=== PATIENT | male | born 1950 | race Caucasian/White ===

== ENCOUNTER 2024-06-17 08:25 | Outpatient (REF) | payer MEDICARE, SELFPAY ==
[2024-06-17 14:41] LABS: MANUAL DIFF FLAG NO
[2024-06-17 14:45] LABS: Basophils Absolute Auto 0.1 X10*3/uL (0.0-0.2); Basophils Percent Auto 0.7 % (0-2); Eosinophils Absolute Auto 0.6 X10*3/uL (0.0-0.4); Hematocrit 40.7 % (42.0-52.0); Hemoglobin 13.5 g/dl (14.0-18.0); Imm Gran Abs Auto 0.03 X10*3/uL (0.00-0.03); Imm Gran Pct Auto 0.3 % (0.0-0.4); Lymphocytes Absolute Auto 2.3 X10*3/uL (1.2-4.9); Lymphocytes Percent Auto 26.2 % (20-40); Mean Corpuscular HGB Conc 33.2 g/dl (31.0-36.0); Mean Corpuscular Hemoglobin 29.1 pg (27.0-33.0); Mean Corpuscular Volume 87.7 fL (80.0-98.0); Mean Platelet Volume 10.7 fL (9.4-12.4); Monocytes Absolute Auto 0.9 X10*3/uL (0.1-1.2); Neutrophils Absolute Auto 4.8 x10*3/uL (2.0-8.3); Neutrophils Percent Auto 55.8 % (45-73); Platelet Count 326 X10*3/uL (160-400); Red Blood Count 4.64 X10*6/uL (4.60-5.80); Red Cell Distribution Width 14.1 % (11.0-16.0); White Blood Count 8.7 X10*3/uL (4.8-10.8)
[2024-06-17 15:10] LABS: Alanine Aminotransferase 16 U/L (0-40); Albumin Level 4.1 g/dL (3.5-5.0); Alkaline Phosphatase 62 U/L (39-117); Anion Gap 12 (12-20); Aspartate Amino Transferase 20 U/L (5-37); Bilirubin Total 0.9 mg/dL (0.0-1.0); Blood Urea Nitrogen 17 mg/dL (9-16); Calcium 9.7 mg/dL (8.4-10.2); Carbon Dioxide 28 mmol/L (22-29); Chloride 104 mmol/L (96-108); Cholesterol 150 mg/dL (<200); Estimated Glomerular Filt Rate > 60; Glucose Random 82 mg/dL (60-115); HDL Cholesterol 56 mg/dL (>40); LDL Cholesterol Calculated 83 mg/dL (<100); Potassium 3.6 mmol/L (3.3-5.1); Sodium 140 mmol/L (135-145); Total Protein 6.9 g/dL (6.5-8.0); Triglycerides 55 mg/dL (<150)
[2024-06-17 15:25] LABS: Ferritin 82 ng/mL (20-250); TSH reflex Free T4 0.67 uIU/mL (0.32-4.0)
== END 2024-06-17 08:26 | disposition home or self-care (01) ==
LOC: HO.CHCLDS 08:25
PROVIDERS: Visit Provider Internal Medicine
DX: E61.1 Iron deficiency (principal); I10 Essential (primary) hypertension; I71.21 Aneurysm of the ascending aorta, without rupture; N40.0 Benign prostatic hyperplasia without lower urinary tract symptoms
CPT/HCPCS: 36415; 80053; 80061; 82728; 84443; 85025

== ENCOUNTER 2024-07-01 15:26 | Outpatient (REF) | payer MEDICARE, SELFPAY ==
--- NOTE | ~2024-07-01 | US_ITS ---
EXAMINATION: US EXTRACRANIAL CAROTID DUPLEX, BILATERAL CLINICAL INFORMATION: History of carotid stenosis COMPARISON: None available. TECHNIQUE: Real-time ultrasound and Doppler techniques (integrating B-mode 2-D vascular images, Doppler spectral analysis and color-flow Doppler imaging) were utilized to interrogate the extracranial carotid arteries, the vertebral arteries and proximal subclavian arteries bilaterally. The degree of stenosis is determined by criteria similar to NASCET. FINDINGS: Right Side: 1. There is mild atherosclerotic plaque seen in the bifurcation/proximal ICA region. 2. The common carotid artery PSV proximally is 106 cm/s and distally 118 cm/s. 3. The proximal internal carotid artery velocities are 118 cm/s systolic and 28 cm/s diastolic. 4. The proximal external carotid artery PSV is 223 cm/s. 5. The vertebral artery shows antegrade flow. 6. The subclavian artery waveforms are normal. Left Side: 1. There is mild atherosclerotic plaque seen in the bifurcation/proximal ICA region. 2. The common carotid artery PSV proximally is 102 cm/s and distally 146 cm/s. 3. The proximal internal carotid artery velocities are 107 cm/s systolic and 23 cm/s diastolic. 4. The proximal external carotid artery PSV is 247 cm/s. 5. The vertebral artery shows antegrade flow. 6. The subclavian artery waveforms are normal. Incidental note of a 2.3 x 2.0 x 2.1 cm right thyroid nodule. US/US carotid duplex BI IMPRESSION: 1. RIGHT: Minimal, non-hemodynamically significant stenosis of the proximal right internal carotid artery corresponding to a 0-49% stenosis by velocity criteria. 2. LEFT: Minimal, non-hemodynamically significant stenosis of the proximal left internal carotid artery corresponding to a 0-49% stenosis by velocity criteria. 3. Elevated velocities in the bilateral external carotid arteries and subclavian artery suggesting hemodynamically significant stenosis. 4. 2.3 x 2.0 x 2.1 cm right thyroid nodule. Recommend dedicated thyroid ultrasound for further evaluation. Electronically signed by: Loulou Galloway MD 07/04/2024 12:11 PM EDT RP
== END 2024-07-01 15:27 | disposition home or self-care (01) ==
LOC: HO.HMGCX 15:26
PROVIDERS: PCP Internal Medicine; Visit Provider Internal Medicine
DX: I77.9 Disorder of arteries and arterioles, unspecified (principal); Z86.79 Personal history of other diseases of the circulatory system; I65.23 Occlusion and stenosis of bilateral carotid arteries
CPT/HCPCS: 93880

== ENCOUNTER 2024-07-15 15:55 | Outpatient (REF) | payer MEDICARE, SELFPAY ==
--- NOTE | ~2024-07-15 | US_ITS ---
EXAMINATION: US THYROID CLINICAL INFORMATION: Incidental finding of a right thyroid lobe nodule on carotid duplex. COMPARISON: Correlated to Ultrasound extracranial carotid duplex, bilateral 07/01/2024. TECHNIQUE: Linear transducer grayscale and color Doppler examination with attention to the region of the thyroid. FINDINGS: SIZE: Measurements of the thyroid lobes and nodules are given in sagittal, anteroposterior and transverse dimensions respectively. Right Thyroid Lobe: 5.1 x 2.8 x 2.2 cm, volume 16.5 mL. Parenchyma: The gland echotexture is homogeneous. Thyroid vascularity is increased. Left Thyroid Lobe: 4.2 x 1.5 x 1.1 cm, volume 3.6 mL. Parenchyma: The gland echotexture is homogeneous. Thyroid vascularity is normal. Isthmus: 0.4 cm in maximum AP dimension. Estimated total number of nodules greater than or equal to 1 cm: 1. [facility] nodules are described as follows: 1. Location: Right mid. Size: 2.4 x 1.9 x 2.3 cm, volume 5.4 mL. Nodule characteristics: Composition: Solid/almost completely solid (2). Echogenicity: Isoechoic (1). Shape: Not taller than wide (0). Margins: Smooth (0). Echogenic Foci: None (0). ACR TI-RADS total points: 3 ACR TI-RADS category: 3 NODES: No lymphadenopathy is seen in the tissue surrounding the thyroid gland. US/US thyroid IMPRESSION: TI-RADS 3 ACR TI-RADS RECOMMENDATION REFERENCE: Ultrasound-guided fine-needle aspiration, followup ultrasound, no further follow up. * TR1 (0 point) and TR2 (2 points): No FNA or follow up. * TR3 (3 points): FNA if more than or equal to 2.5 cm in maximum dimension, followup ultrasound in 1, 3 and 5 years if 1.5 to 2.4 cm in maximum dimension. * TR4 (4-6 points): FNA if more than or equal to 1.5 cm in maximum dimension, followup ultrasound in 1, 2, 3 and 5 years if 1 to 1.4 cm in maximum dimension. * TR5 (more than or equal to 7 points): FNA if more than or equal to 1 cm in maximum dimension, followup ultrasound every year for 5 years if 0.5 to 0.9 cm in maximum dimension. * TR3, TR4 or TR5 nodules that are below the size threshold for followup receive no follow up. Electronically signed by: Duy Randle MD 09/05/2024 09:29 AM [employer]DER
== END 2024-07-15 15:56 | disposition home or self-care (01) ==
LOC: HO.US 15:55
PROVIDERS: PCP Internal Medicine; Visit Provider Internal Medicine
DX: E04.1 Nontoxic single thyroid nodule (principal)
CPT/HCPCS: 76536

== ENCOUNTER → 2024-07-15 15:57 | Outpatient (BNV) | payer MEDICARE, SELFPAY | PROVIDERS: PCP Internal Medicine; Visit Provider Radiology Diagnostic Radiology | DX: E04.1 Nontoxic single thyroid nodule (principal) | CPT/HCPCS: 76536 ==

== ENCOUNTER 2024-09-30 08:44 | Outpatient (AMB) | payer MEDICARE, SELFPAY ==
--- NOTE | 2024-09-30 08:46 | MHC.OFFVIS ---
Vital Signs 09/30/24 08:47 Height 5 ft 9 in Weight 167 lb 12.348 oz BMI 24.8 BP 120/68 Blood Pressure Location Lt brachial Position Sitting Pulse 49 L Pulse Source Pulse Oximeter Intake Visit Reasons: R Thyroid nodule Intake Note: New patient present today for R Thyroid nodule office visit. Paradi Operator Required: No Accompanied by: Self / Same As Patient Allergies No Known Allergies Allergy (Verified 09/30/24 08:49) Medication List - Last Reconciled 09/30/24 by Selin Baugh MD amlodipine 10 mg PO DAILY aspirin (Adult Low Dose Aspirin) 81 mg PO DAILY hydrochlorothiazide 12.5 mg PO DAILY HPI Comments Details: 74-year-old male here today for initial evaluation of right-sided thyroid nodule. Diagnosed with right sided thyroid nodule 3 to 4 years ago so sometime around on palpation Was previously seeing endocrine at [facility] , has had 2 biopsies around 3 years ago which per patient were both non diagnostic. Ultrasound from 07/15/2024, I reviewed the images myself which showed a solitary right mid lobe 2.4 cm nodule, solid, isoechoic, well-circumscribed, no punctate echogenic foci, not taller than wide. Consistent with TI-RADS 3. Based on YEISON guidelines this is a low suspicion nodule with a 5-10% chance of malignancy, however given that it is greater than 1.5 cm in size, per YEISON guidelines meets criteria for FNA biopsy. Patient currently denies heat or cold intolerance, diarrhea or constipation, hair loss, palpitation, anxiety, weight changes, mood changes, low energy, changes in appearance of eyes or vision changes, tremors, increased diaphoresis or dry skin. ? Patient denies any difficulty swallowing, pain on swallowing or voice changes or difficulty breathing. Patient denies any history of childhood neck radiation. Denies having ever used lithium, amiodarone or biotin supplements. Patient denies any family history of thyroid cancer. Sister with thyroidectomy but not cancer. Quit smoking 04/2020. Smoked for 60 years . Review of systems Constitutional: no fevers, chills or weight loss HEENT: no changes in vision Cardiac: No chest pain, discomfort or palpitations. Pulmonary: No SOB GI:No abdominal pain, no nausea or vomiting, no anorexia, no blood in stool : no burning micturition, dysuria or increase in urinary frequency Neurologic: No dizziness, no weakness in extremities MSK: no back pain or joint stiffness Physical exam General: sitting comfortably in no acute distress HEENT: normocephalic/atraumatic, Neck: supple, [place] 2 cm thyroid nodule on the right , no dorsocervical or supraclavicular fat pads Cardiac: normal heart sounds Pulm: normal breath sounds B/L, no added breath sounds Abd: not distended, no tenderness Extremities: no edema, no signs of myxedema Laboratory Tests 06/17/24 08:27 TSH 0.67 US THYROID 07/15/24 CLINICAL INFORMATION: Incidental finding of a right thyroid lobe nodule on carotid duplex. COMPARISON: Correlated to Ultrasound extracranial carotid duplex, bilateral 07/01/2024. TECHNIQUE: Linear transducer grayscale and color Doppler examination with attention to the region of the thyroid. FINDINGS: SIZE: Measurements of the thyroid lobes and nodules are given in sagittal, anteroposterior and transverse dimensions respectively. Right Thyroid Lobe: 5.1 x 2.8 x 2.2 cm, volume 16.5 mL. Parenchyma: The gland echotexture is homogeneous. Thyroid vascularity is increased. Left Thyroid Lobe: 4.2 x 1.5 x 1.1 cm, volume 3.6 mL. Parenchyma: The gland echotexture is homogeneous. Thyroid vascularity is normal. Isthmus: 0.4 cm in maximum AP dimension. Estimated total number of nodules greater than or equal to 1 cm: 1. Acid Blower nodules are described as follows: 1. Location: Right mid. Size: 2.4 x 1.9 x 2.3 cm, volume 5.4 mL. Nodule characteristics: Composition: Solid/almost completely solid (2). Echogenicity: Isoechoic (1). Shape: Not taller than wide (0). Margins: Smooth (0). Echogenic Foci: None (0). ACR TI-RADS total points: 3 ACR TI-RADS category: 3 NODES: No lymphadenopathy is seen in the tissue surrounding the thyroid gland. US/US thyroid IMPRESSION: TI-RADS 3 [facility] Medical History (Updated 09/30/24 @ 08:55 by Selin Baugh MD) Solitary nodule of right lobe of thyroid Surgical History (Updated 09/30/24 @ 08:50 by KATRINA Reyes) History of cataract surgery Family History Mother No problems noted. Father No problems noted. Social History Alcohol intake: former Patient Tobacco Use Status: Former Tobacco user Assessment & Plan Assessment & Plan (1) Solitary nodule of right lobe of thyroid: Code(s): E04.1 - Nontoxic single thyroid nodule Category: Medical Plan: 74-year-old male with no family history of thyroid cancer, with no personal history of head or neck radiation coming in today for initial evaluation of solitary right-sided thyroid nodule. Diagnosed sometime around 10/2021, he says he has had 2 biopsies before 3 years ago, which were both nondiagnostic and he was advised to have surgery, however he chose to monitor with repeat ultrasounds. Ultrasound from 07/15/2024, I reviewed the images myself which showed a solitary right mid lobe 2.4 cm nodule, solid, isoechoic, well-circumscribed, no punctate echogenic foci, not taller than wide. Consistent with TI-RADS 3. Based on YEISON guidelines this is a low suspicion nodule with a 5-10% chance of malignancy, however given that it is greater than 1.5 cm in size, per YEISON guidelines meets criteria for FNA biopsy. I explained that it is common to have thyroid nodules. About 95% of the time these nodules are benign. However if the nodule is > 1 cm in size or suspicious on ultrasound then a fine need aspiration biopsy is recommended. We discussed that a FNAB involves 4-5 passes with a small gauge needle and material obtained is sent off for cytology.If the cytopathology is benign then the nodule will be followed annually with repeat ultrasounds. However if it is suspicious or malignant, we will need to discuss further management. Indeterminate cytology can be further investigated with repeat FNA, genetic testing or empiric lobectomy. Malignant cytology is managed with either lobectomy or total thyroidectomy. We discussed briefly that thyroid cancer is, in most patients, an indolent disease that does not affect mortality. We will arrange for FNA of the right mid lobe 2.4 cm thyroid nodule at next available opening and patient will follow up with me in clinic thereafter for results and further decision making. If it again comes back as nondiagnostic, I explained to the patient that there is a 5-10% chance of malignancy, hence smile we would recommend undergoing right lobectomy, other option is to monitor with surveillance at rest sounds, with a known risk of 5-10% chance of malignancy that could spread potentially in cause . Patient said he would be leaning towards monitoring but for we agreed to do a biopsy. We will also obtain results of his nondiagnostic biopsies from the past from [facility] for records. Plan: -scheduled for FNA of the right mid lobe 2.4 cm thyroid nodule -follow up in 2 weeks after biopsy to discuss results -obtain records from [facility] Plan I spent 45 minutes in reviewing the record, seeing the patient and documenting in the medical record. Orders: Orders US biopsy thyroid Today E04.1 - Nontoxic single thyroid nodule Coding Level of Care Code New Pt Level 4 (59711) Diagnoses Solitary nodule of right lobe of thyroid E04.1 Time Spent (min) 45
[2024-09-30 08:47] VITALS: BP 120/68; PULSE 49; BMI 24.8
== END 2024-09-30 09:31 | disposition home or self-care (01) ==
PROVIDERS: PCP Internal Medicine; Visit Provider Student in an Organized Health Care Education/Training Program
DX: E04.1 Nontoxic single thyroid nodule (principal)
CPT/HCPCS: 99204

== ENCOUNTER → 2024-09-30 08:44 | Outpatient (BNVA) | payer MEDICARE, SELFPAY | PROVIDERS: PCP Internal Medicine; Visit Provider Student in an Organized Health Care Education/Training Program | DX: I65.23 Occlusion and stenosis of bilateral carotid arteries (principal); E04.1 Nontoxic single thyroid nodule | CPT/HCPCS: 99202 ==

== ENCOUNTER 2024-09-30 09:37 | Outpatient (AMB) | payer MEDICARE, SELFPAY ==
--- NOTE | 2024-09-30 10:15 | A.OFFVIS_ITS ---
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 He had actually been seen by his primary care team who ordered carotid ultrasound. He had been seen by vascular surgery at [facility] but subsequently transferred care due to insurance changes. He reports no significant issues. He denies any lateralizing signs or symptoms, speech disturbances, visual field deficits. He does report that he had a sister that had a stroke in the past. He quit smoking in 2019 and prior to that he was smoking about a pack a day for nearly 60 years. He is being maintained on an aspirin and statin. [facility] Medical History (Updated 09/30/24 @ 14:07 by Anirudh Peterson MD) Solitary nodule of right lobe of thyroid Surgical History (Updated 09/30/24 @ 08:50 by KATRINA Reyes) History of cataract surgery Family History (Updated 09/30/24 @ 08:51 by KATRINA Reyes) Mother No problems noted. Father No problems noted. Social History (Updated 09/30/24 @ 08:52 by KATRINA Reyes) Alcohol intake: former Patient Tobacco Use Status: Former Tobacco user Review of Systems Const All systems reviewed & are unremarkable except as noted in HPI and below Denies chills, Denies daytime sleepiness, Denies fatigue, Denies fever(s), Denies poor appetite, Denies snoring, Denies stops breathing during sleep, Denies weakness, Denies weight gain and Denies weight loss Eyes Denies loss of vision ENT Reports Normal hearing present, Denies dizziness and Denies hearing loss Card Denies chest pain, Denies irregular heart rhythm, Denies claudication, Denies leg edema, Denies lightheadedness, Denies palpitations, Denies dyspnea on exertion and Denies orthopnea Resp Denies cough, Denies excessive phlegm production, Denies dyspnea on exertion, Denies snoring and Denies wheezing GI Denies abdominal pain, Denies hematochezia, Denies change in bowel habits, Denies nausea and Denies vomiting Denies dysuria and Denies urinary frequency Musc Denies arthralgias, Denies muscle weakness, Denies numbness and Denies other Skin/Breast Denies nail changes and Denies rash Neuro Reports Normal hearing present, Denies Abnormal speech present, Denies dizziness, Denies loss of vision, Denies memory loss, Denies numbness and Denies weakness Psych Denies depression and Denies memory loss Endo Denies fatigue and Denies palpitations Aj/Lymph Denies easy bruising Aller/Immun Denies wheezing Physical Exam Vital Signs: Last Vital Signs BP 130/52 L 09/30/24 10:18 Const General: cooperative, healthy appearing and comfortable Orientation/consciousness: oriented to person, oriented to place and oriented to time HEENT Head: Yes normal to inspection Neck Neck: Yes normal visual inspection Carotids: no bruits Chest Chest palpation & inspection: normal inspection of the chest Resp Effort & Inspection: normal respiratory effort and able to speak in complete sentences Auscultation: clear to auscultation bilaterally, no crackles, no rales, no rhonchi and no wheezes Cardio Rate: regular rate Rhythm: regular rhythm Heart sounds: S1 normal heart sound present and S2 normal heart sound present Bruits: no carotid bruits Peripheral pulses: Peripheral pulses 2+ throughout GI Inspection: Yes normal to inspection Skin Wounds: no wounds Hair: normal Neuro General: oriented to person, oriented to place and oriented to time Cranial nerves: Yes CN's II-XII intact bilaterally and Yes Normal hearing present Cognition (Neuro): normal cognition Speech: No Abnormal speech present Motor exam (neuro): 5/5 motor strength present throughout Extrem Other: venous exam: No significant superficial varicosities or spider t elangiectasias, minimal edema General: No clubbing, No cyanosis and No edema Psych Appearance: grossly normal Mental Status: mental status grossly normal Speech and movement: Normal speech and movement present Results Reviewed Results Reviewed: Carotid ultrasound dated 07/04/2024 demonstrates bilateral 0-49% stenosis. Written report and images were reviewed. Assessment & Plan Assessment & Plan (1) Bilateral carotid artery stenosis: Code(s): I65.23 - Occlusion and stenosis of bilateral carotid arteries Category: Medical Plan: In short patient has asymptomatic carotid disease. We have reviewed signs and symptoms of a stroke. We also discussed risk factor modification inclusive a healthy diet low in cholesterol. The patient will follow up with us with surveillance ultrasound of the carotids 1 year. Should there be any changes or signs or symptoms of a stroke we will be happy to see them back sooner. Thank you for allowing us to participate in this patient's care. If there are any que stions or concerns please do not hesitate to contact us. Orders: Orders US carotid duplex BI 1 Year I65.23 - Occlusion and stenosis of bilateral carotid arteries Coding Level of Care Code New Pt Level 4 (15300) Complex EM visit Add On G2211 Diagnoses Bilateral carotid artery stenosis I65.23
[2024-09-30 10:16] VITALS: BP 136/50
[2024-09-30 10:18] VITALS: BP 130/52
== END 2024-09-30 10:47 | disposition home or self-care (01) ==
LOC: HO.HVS 09:37
PROVIDERS: PCP Internal Medicine; Visit Provider Surgery Vascular Surgery
DX: I65.23 Occlusion and stenosis of bilateral carotid arteries (principal)
CPT/HCPCS: 99204; G2211

== ENCOUNTER 2024-10-01 07:32 | Outpatient (REF) | payer MEDICARE, SELFPAY ==
--- NOTE | 2024-10-01 08:31 | PM.PROC ---
Brief Operative Note Date of procedure: 10/01/24 Pre-op diagnosis: right mid 2.4 cm thyroid nodule FNA biopsy Post-op diagnosis: same Procedure: THYROID FINE NEEDLE ASPIRATION PROCEDURE NOTE ? PROCEDURE PERFORMED: Ultrasound-guided FNA of thyroid nodule ? OPERATORS: Dr. Selin Baugh ? INDICATION: right mid 2.4 cm thyroid nodule; FNA performed to assess for malignancy ? DESCRIPTION OF PROCEDURE: The indications for FNA (to assess for malignancy) were reviewed with the patient in detail. Potential complications (e.g., bleeding, infection, damage to local structures, absence of clear diagnosis after FNA) were reviewed. Alternatives to FNA including conservative observation or surgery were described. The patient understood and agreed to proceed. This was documented by the signing of the written informed consent form. A time-out was performed to confirm the patient's identity and the site of planned FNA. The nodule of interest was identified using ultrasound (14 MHz linear array probe). The site of FNA was then draped in the usual fashion and carefully cleaned and prepared using alcohol swabs. The skin at the previously-identified site of needle insertion was iced and sprayed with numbing spray. Under ultrasound guidance, __ passes were performed using a 1.5-inch, 25-gauge needle, and sample was obtained via capillary action. The needle tip was clearly visualized to be within the nodule at the time of sampling for 4__ of4 __ passes The patient tolerated the procedure well. There were no immediate complications. A small adhesive bandage was applied, and the patient was advised to take acetaminophen (rather than NSAIDs) for any discomfort and to report any signs of inflammation/infection or marked swelling. IMPRESSION: Technically successful ultrasound-guided fine needle aspiration of right mid 2.4 cm thyroid nodule. PLAN: The patient was advised that I will provide follow-up regarding the cytology result and any subsequent plans. Selin Baugh MD Endocrinology Attending Condition: stable Disposition: same day
== END 2024-10-01 07:33 | disposition home or self-care (01) ==
LOC: HO.US 07:32
PROVIDERS: PCP Internal Medicine; Visit Provider Student in an Organized Health Care Education/Training Program
DX: E04.1 Nontoxic single thyroid nodule (principal)
CPT/HCPCS: 10005; 88173

== ENCOUNTER → 2024-10-01 07:32 | Outpatient (BNV) | payer MEDICARE, SELFPAY | PROVIDERS: PCP Internal Medicine; Visit Provider Student in an Organized Health Care Education/Training Program | DX: E04.1 Nontoxic single thyroid nodule (principal) | CPT/HCPCS: 10005 ==

== ENCOUNTER 2024-10-16 09:18 | Outpatient (AMB) | payer MEDICARE, SELFPAY ==
[2024-10-16 09:20] VITALS: BP 142/62; PULSE 53; BMI 24.9
--- NOTE | 2024-10-16 09:20 | A.OFFVIS_ITS ---
Vital Signs 3 10/16/24 09:20 Height 5 ft 9 in Weight 168 lb 13.985 oz BMI 24.9 BP 142/62 H Blood Pressure Location Lt brachial Position Sitting Pulse 53 Pulse Source Pulse Oximeter Intake Visit Reasons: Biopsy f/u Intake Note: Patient present today for biopsy follow up visit. Adult Family Home Program Manager Required: No Accompanied by: Self / Same As Patient Allergies No Known Allergies Allergy (Verified 10/16/24 09:25) HPI Comments Details: 74-year-old male here today for followup of right-sided thyroid nodule. HPI from prior visit Diagnosed with right sided thyroid nodule 3 to 4 years ago so sometime around on palpation Was previously seeing endocrine at [facility] , has had 2 biopsies around 3 years ago which per patient were both non diagnostic. Ultrasound from 07/15/2024, I reviewed the images myself which showed a solitary right mid lobe 2.4 cm nodule, solid, isoechoic, well-circumscribed, no punctate echogenic foci, not taller than wide. Consistent with TI-RADS 3. Based on YEISON guidelines this is a low suspicion nodule with a 5-10% chance of malignancy, however given that it is greater than 1.5 cm in size, per YEISON guidelines meets criteria for FNA biopsy. Interval history On 10/01/2024: Underwent FNA biopsy with me of the right mid 2.4 cm nodule which came back as nondiagnostic [place] category 1. Patient currently denies heat or cold intolerance, diarrhea or constipation, hair loss, palpitation, anxiety, weight changes, mood changes, low energy, changes in appearance of eyes or vision changes, tremors, increased diaphoresis or dry skin. ? Patient denies any difficulty swallowing, pain on swallowing or voice changes or difficulty breathing. Patient denies any history of childhood neck radiation. Denies having ever used lithium, amiodarone or biotin supplements. Patient denies any family history of thyroid cancer. Sister with thyroidectomy but not cancer. Quit smoking 04/2020. Smoked for 60 years . Review of systems Constitutional: no fevers, chills or weight loss HEENT: no changes in vision Cardiac: No chest pain, discomfort or palpitations. Pulmonary: No SOB GI:No abdominal pain, no nausea or vomiting, no anorexia, no blood in stool : no burning micturition, dysuria or increase in urinary frequency Neurologic: No dizziness, no weakness in extremities MSK: no back pain or joint stiffness Physical exam General: sitting comfortably in no acute distress HEENT: normocephalic/atraumatic, Neck: supple, [place] 2 cm thyroid nodule on the right , no dorsocervical or supraclavicular fat pads Cardiac: normal heart sounds Pulm: normal breath sounds B/L, no added breath sounds Abd: not distended, no tenderness Extremities: no edema, no signs of myxedema Laboratory Tests 06/17/24 08:27 TSH 0.67 US THYROID 07/15/24 CLINICAL INFORMATION: Incidental finding of a right thyroid lobe nodule on carotid duplex. COMPARISON: Correlated to Ultrasound extracranial carotid duplex, bilateral 07/01/2024. TECHNIQUE: Linear transducer grayscale and color Doppler examination with attention to the region of the thyroid. FINDINGS: SIZE: Measurements of the thyroid lobes and nodules are given in sagittal, anteroposterior and transverse dimensions respectively. Right Thyroid Lobe: 5.1 x 2.8 x 2.2 cm, volume 16.5 mL. Parenchyma: The gland echotexture is homogeneous. Thyroid vascularity is increased. Left Thyroid Lobe: 4.2 x 1.5 x 1.1 cm, volume 3.6 mL. Parenchyma: The gland echotexture is homogeneous. Thyroid vascularity is normal. Isthmus: 0.4 cm in maximum AP dimension. Estimated total number of nodules greater than or equal to 1 cm: 1. [employer] nodules are described as follows: 1. Location: Right mid. Size: 2.4 x 1.9 x 2.3 cm, volume 5.4 mL. Nodule characteristics: Composition: Solid/almost completely solid (2). Echogenicity: Isoechoic (1). Shape: Not taller than wide (0). Margins: Smooth (0). Echogenic Foci: None (0). ACR TI-RADS total points: 3 ACR TI-RADS category: 3 NODES: No lymphadenopathy is seen in the tissue surrounding the thyroid gland. US/US thyroid IMPRESSION: TI-RADS 3 [facility] Medical History (Updated 09/30/24 @ 14:07 by Anirudh Peterson MD) Solitary nodule of right lobe of thyroid Surgical History (Updated 09/30/24 @ 08:50 by KATRINA Reyes) History of cataract surgery Family History (Updated 09/30/24 @ 08:51 by KATRINA Reyes) Mother No problems noted. Father No problems noted. Social History (Updated 09/30/24 @ 08:52 by KATRINA Reyes) Alcohol intake: former Patient Tobacco Use Status: Former Tobacco user Assessment & Plan Assessment & Plan (1) Solitary nodule of right lobe of thyroid: Code(s): E04.1 - Nontoxic single thyroid nodule Category: Medical Plan: 74-year-old male with no family history of thyroid cancer, with no personal history of head or neck radiation coming in today for follow up of solitary right-sided thyroid nodule. Diagnosed sometime around 10/2021, he says he has had 2 biopsies before 3 years ago, which were both nondiagnostic and he was advised to have surgery, however he chose to monitor with repeat ultrasounds. Ultrasound from 07/15/2024, I reviewed the images myself which showed a solitary right mid lobe 2.4 cm nodule, solid, isoechoic, well-circumscribed, no punctate echogenic foci, not taller than wide. Consistent with TI-RADS 3. Based on YEISON guidelines this is a low suspicion nodule with a 5-10% chance of malignancy, however given that it is greater than 1.5 cm in size, per YEISON guidelines meets criteria for FNA biopsy. On 10/01/2024: Underwent FNA biopsy with me of the right mid 2.4 cm nodule which came back as nondiagnostic [place] category 1. At this point patient has had 3 nondiagnostic biopsies. I explained to the patient that there is a 5-10% chance of malignancy, hence one option is undergoing right lobectomy, other option is to monitor with surveillance ultrasounds, with a known risk of 5-10% chance of malignancy that could spread potentially in cause . Patient said he would be okay with monitoring knowing the risk. I counseled him regarding compressive symptoms in that if those occur to contact us sooner. At this point we will plan to repeat an ultrasound in 1 year. Plan: -ordered ultrasound of the thyroid to be done in August 2025 along with blood work with TSH, free T4 -follow up in September 2025 Plan See above Orders: Orders 2 Thyroid Stimulating Hormone 1 Year E04.1 - Nontoxic single thyroid nodule Free T4 (Free Thyroxine) 1 Year E04.1 - Nontoxic single thyroid nodule US thyroid 08/24/25 E04.1 - Nontoxic single thyroid nodule Patient Instructions: Do thyroid ultrasound and blood work in August 2025 See me back in September 2025 Someone will call you to schedule the ultrasound The blood work orders is already sitting at the lab Coding Level of Care Code Est Pt Level 3 (81676) Diagnoses Solitary nodule of right lobe of thyroid E04.1
== END 2024-10-16 09:35 | disposition home or self-care (01) ==
PROVIDERS: PCP Internal Medicine; Visit Provider Student in an Organized Health Care Education/Training Program
DX: E04.1 Nontoxic single thyroid nodule (principal)
CPT/HCPCS: 99213

== ENCOUNTER → 2024-10-16 09:18 | Outpatient (BNVA) | payer MEDICARE, SELFPAY | PROVIDERS: PCP Internal Medicine; Visit Provider Student in an Organized Health Care Education/Training Program | DX: E04.1 Nontoxic single thyroid nodule (principal) | CPT/HCPCS: 99212 ==

== ENCOUNTER 2025-07-08 08:08 | Outpatient (REF) | payer MEDICARE, SELFPAY ==
--- OUTSIDE RECORDS SUMMARY | 2025-07-08 08:57 | XMS_ITS | Encounter Summary ---
Author Organization [employer] Address [address] [place] [address] Care Team Providers Care Tack Welder Name Role Phone Dio Jauregui MD Primary Care Provider [phone] Encounter Details Date Type Department Care Team ([facility] st Contact Info) Description 02/20/2025 Orders Only [facility] [address] [place], [place] [id number] ProviderGm MD Social History Tobacco Use Types Packs/Day Years Used Date Smoking Tobacco: Former Cigarettes 1 61.1 S tarted: 06/16/1964 Comments:Quit smoking on 04/22 020. Smoked average 1 pd x 60 years. Housing Stability Answer Date Recorded What is your housing situation today? I have cornelius gomez 06/09/[address] you li ve. Do you have problems with any of the following? None of the above 06/09/2024 Food Insecurity Answer Date Recorded Within the past 12 months, y ou worried that your food would run out before you got money to buy more: Never True 06/09/2024 Within the past 12 months,th e food you bought just didn't last and you didn't have enough money to get more: Never True Transportation Answer Date Recorded In the past 12 months, has l ack of transportation kept you from medical appts, meetings, work or from getting things needed for daily living? No 06/09/2024 Utilities Answer Date Recorded In the past 12 months, has t he electric, gas, oil or water company threatened to shut off services in your home? No 06/09/2024 Internet Access Answer Date Recorded Internet Access Q1 Yes 06/20/2024 Internet Access Q2 Not on file 06/20/2024 Sex and Gender Information Value Date Recorded Sex Assigned at Male 08/21/2022 10:21 AM EDT Legal Sex Male 10:21 AM EDT Gender Identity Male 08/21/2022 10:21 AM EDT Sexual Orientation Straight 08/21/2022 10 :21 AM EDT documented as of this encounter Plan of Treatment Upcoming Encounters Date Type Department Care Team (Late st Contact Info) Description 07/13/2025 9:00 AM EDT Office Visit [facility] [address] [place] [address] Dio Jauregui MD [address] [place] [address] documented as of this encounter Procedures Procedure Name Priority Date/Time Associated Diagnosis Comments ECG 12-LEAD Routine 02/20/2025 3:11 PM EDT documented in this encounter Results * ECG 12 lead (02/20/2025 3:11 PM EDT) us Historical Provider ECG ORDERABLES Final Res ult documented in this encounter Visit Diagnoses Not on filedocumented in this encounter Care Teams Tack Welder Relationship Specialty Start Date End Date Dio Jauregui MD [address] [place] [address] PCP - General Internal Medicine 06/16/24 documented as of this encounter
--- OUTSIDE RECORDS SUMMARY | 2025-07-08 08:58 | XMS_ITS | Clinical Summary ---
Author Organization [address] [place] [address] [place] [phone] Phone Care Team Providers Care Search Marketing Coordinator Name Role Phone Dio Jauregui MD Primary Care Provider [phone] [phone] Allergies No known active allergies Medications hydroCHLOROthiaz bhaskar 12.5 mg tablet Take 1 Tablet by mouth daily. 03/21/2024 Active atorvastatin (LIPITOR) 20 mg tablet Take 1 Tablet by mouth daily. 03/21/2024 Active amLODIPine (NORVASC) 10 mg tablet Take 1 Tablet by mouth daily. 03/21/2024 Active aspirin 81 mg EC tablet Take 1 Tablet by mouth daily. 03/21/2024 Active Active Problems Problem Noted Date Diagnosed Date Bilateral carotid bruits 08/10/2021 Overview (09/17/2024): -Carotid and possible left subclavian disease -[place] bruits on exam so obtained a carotid ultrasound on 09/12/2021 showing 50 to 69% stenosis of the right internal carotid (closer to 50% though based on velocities), and less than 50% stenosis in the left internal carotid with elevated velocities in the left subclavian artery suggesting possible stenosis, normal velocities in the right subclavian, antegrade flow in both vertebrals. - Had a repeat carotid ultrasound more recently on 05/22/2023 which showed no hemodynamically significant stenoses of the bilateral internal carotid arteries with elevated velocities in the bilateral external carotid arteries, patent, antegrade flow in both vertebrals -Followed by vascular surgery Coronary artery calcification seen on CAT scan 0 06/15/2021 Overview (09/17/2024): -Had a screening low-dose lung cancer CT of the chest on 06/05/2021 which showed three-vessel coronary artery calcification most confluent left anterior descending coronary artery, enlargement of the ascending thoracic aortic aneurysm at 4.1 cm, no evidence of lung cancer, other noncardiac findings as well -At his initial visit with me, he described significant symptoms of shortness of breath with exertion-typically with stair climbing (though usually multiple flights) that has been progressing over the past year -We set him up for an exercise nuclear stress test which was performed on 08/29/2021-he exercised for almost 6 minutes but only to 78% of max predicted heart rate but to symptom limitation; he had the symptoms he was experiencing at home which were shortness of breath with wheezing; nuclear imaging showed apical thinning-a benign variant but otherwise normal perfusion, normal systolic function and regional wall motion, normal TID ratio, and preserved ejection fraction of 60%; he did have a short run of an ectopic atrial rhythm in recovery that eventually converted to sinus rhythm by the end of the study Last Assessment & Plan: Continue medical management with atorvastatin 20 mg at bedtime and baby aspirin Ectatic aorta ([facility] [place] V24) 06/15/2021 Overview (02/20/2025): -See CT under cor calc section from 06/05/2021-Dr. Shaver independently reviewed these images and got an aortic root measurement of 3.8 cm in the septal lateral dimension (aortic root was not well-visualized in the anteroposterior dimension); ascending aorta was measured at 3.95 cm (septal lateral) by 3.61 cm (anteroposterior) - Independent review of May 2022 CT scan showed (SL x AP): Aortic root: 3.8cm x not well visualized Ascending aorta: 4cm x 3.9 cm (but this latter measurement was degraded slightly by motion artifact and margins were not well delineated) - Independent review of May 2023 CT scan using above format: Aortic root: 3.8 x not well-visualized Ascending aorta: 3.9 x 3.6 cm -Independent review of June 2024 CT scan and above format: Aortic root: 3.8 x not well visualized Ascending aorta: 3.9 x 3.7cm - Most recent echocardiogram in our office on 07/09/2023 showed normal biventricular size and systolic function, normal left ventricular regional wall motion with ejection fraction of 55 to 60%, normal left ventricular diastolic function, no hemodynamically significant valve disease, normal aortic root size at 3.4 cm and upper normal ascending aortic size at 3.6 cm Last Assessment & Plan: Reviewed that most of his scans over the years-CAT scans and echocardiograms- have indicated that his aorta is likely upper normal in size and at the very worst, only mildly ectatic. Reassurance was provided. Ultimately, I am not sure it is necessary to continue surveillance imaging but for his own peace of mind, he will be getting yearly CT scans as a part of the lung cancer screening program for the next couple of years. Thereafter, would probably only do surveillance echoes every 4 to 5 years assuming that the next 2 CT scans are stable. Advised against excessive heavy lifting but not necessarily for the aorta but mainly for musculoskeletal reasons. He does not do this anyway. No activity restrictions as far as cardiovascular exercise. Essential hypertension 06/15/2021 Overview (09/17/2024): Last Assessment & Plan: Normally well-controlled on prior office visits and at home. Today's elevation is likely whitecoat phenomenon. 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 Encounters Date Type Department Care Team Description 06/27/2025 6:58 AM EDT - 06/27/2025 11:59 PM EDT Hospital Encounter [facility] CT Scan [address] [place] [address] Encounter for screening for malignant neoplasm of respiratory organs; Nicotine dependence, cigarettes, uncomplicated Discharge Disposition: Home or Self Care 06/04/2025 Telephone Lung Screening Program - [place] [facility] [address] [facility] [address] [place] [address] Janice Ma MA from Last 3 Months Surgical History Surgery Date Site/Laterality Comments TURP / TRANSURETHRAL INCISIO N / DRAINAGE PROSTATE N/A PROCEDURE: HISTORICAL TURP Medical History Medical History Date Comments Tobacco abuse 03/01/2021 DX:Tobacco abuse Blind right eye 03/01/2021 DX:Blind right e ye; COMMENT: Since childhood Essential hypertension DX:Essent ial hypertension Hyperlipidemia DX:Hyperlipidemi a Family History Medical History Relation Name Comments Sudden Brother in his 40s ; he's a half sibling; his father (who is not related to the patient) early of an AR No Known Problems Father doesn't kn ow much about him, not involved with them until later in life Other: mva Mother Heart attack Sister early 60s Stroke Sister Relation Name Status Comments Brother Father Mother Sister Alive Social History Tobacco Use Types Packs/Day Years Used Date Smoking Tobacco: Former Cigarettes Q uit: 05/18/2021 Smokeless Tobacco: Never Alcohol Use Standard Drinks/Week Comments Never 0 (1 standard drink = 0.6 oz pur e alcohol) Sex and Gender Information Value Date Recorded Sex Assigned at Not on file Legal Sex Male 9:50 PM EST Gender Identity Not on file Sexual Orientation Not on file Obstetrics History Last Filed Vital Signs Vital Sign Reading Time Taken Comments Blood Pressure 130/60 02/20/2025 10:36 AM EDT Pulse 58 02/20/2025 10:36 AM EDT Temperature - - Respiratory Rate - - Oxygen Saturation 98% 02/20/2025 10:36 AM EDT Inhaled Oxygen Concentration - - Weight 76.2 kg (168 lb) 02/20/2025 10:36 AM EDT Height 175.3 cm (5' 9 ) 02/20/2025 10:36 AM EDT Body Mass Index 24.81 02/20/2025 10:36 AM EDT Plan of Treatment Health Maintenance Due Date Last Done Comments DTaP,Tdap,and Td Vaccines (1 - Tdap) 1969 Pneumococcal Vaccine: 50+ Years (1 of 1 - PCV) 2000 Zoster Vaccines (1 of 2) 2000 Abdominal Aortic Aneurysm (AAA) Screen 09/30/2022 Colorectal Cancer Screening: Stool Based Tests (FOBT/FIT) 09/30/2022 Falls Risk Assessment 09/30/2022 Hepatitis C Screening 09/30/2022 Medicare Annual Wellness Visit 09/30/2022 Social Influencers of Health Screening 09/30/2022 Hypertension/CHF/CAD Annual BMP Blood Test 09/20/2024 09/20/2023 Depression Screening 10/22/2024 RSV Immunization Adult Patients (1 - 1-dose 75+ series) 2025 COVID-19 Vaccine (2024- season) 2025 01/06/2023, 02/09/2021, 01/18/2021 Influenza Vaccine (#1) 2025 Lung Cancer Screening (Low Dose CT) 06/27/2026 06/27/2025, 06/24/2024, 06/22/2024, Additional history exists Cholesterol Screening (Lipid Panel) 06/17/2029 06/17/2024, 08/15/2022 HIB Vaccines Aged Out No longer eligi ble based on patient's age to complete this topic HPV Vaccines Aged Out No longer eligi ble based on patient's age to complete this topic Hepatitis A Vaccines Aged Out No long er eligible based on patient's age to complete this topic Hepatitis B Vaccines Aged Out No long er eligible based on patient's age to complete this topic IPV Vaccines Aged Out No longer eligi ble based on patient's age to complete this topic MMR Vaccines Aged Out No longer eligi ble based on patient's age to complete this topic Meningococcal ACWY Vaccine Aged Out N o longer eligible based on patient's age to complete this topic Meningococcal B Vaccine Aged Out No l onger eligible based on patient's age to complete this topic RSV Immunization Patients Under 20 months Aged Out No longer eligible based on patient's age to complete this topic Varicella Vaccines Aged Out No longer eligible based on patient's age to complete this topic Procedures Procedure Name Priority Date/Time Associated Diagnosis Comments CT LUNG SCREENING Routine 06/27/2025 7:2 0 AM EDT Encounter for screening for malignant neoplasm of respiratory organs Nicotine dependence, cigarettes, uncomplicated HM ANNUAL BMP BLOOD TEST Routine 09/20/2023 LIPID PANEL Routine 08/15/2022 from Last 3 Months or Most Recently Relevant to Health Maintenance Results * CT Lung Screening (06/27/2025 7:20 AM EDT) Anatomical Region Laterality Modality Chest Computed Tomogra phy 07/07/2025 5:54 PM EDT Impressions 07/07/2025 6:02 PM EDT No new suspicious mass or nodule. No suspicious interval change. LUNG RADS: Lung-RADS 2: BENIGN S Modifier (Significant or Potentially Significant Findings): None present No suspicious nonpulmonary findings. RECOMMENDATIONS: 12 month screening low dose CT -------- FINAL REPORT -------- Dictated By: Sandeep Palmer Dictated Date: 07/07/2025 17:54 ET Assigned Physician: Sandeep Palmer Reviewed and Electronically Signed By: Sandeep Palmer Signed Date: 07/07/2025 18:02 ET Workstation ID: [id number] Transcribed By: Self Edit Transcribed Date: 07/07/2025 17:54 ET Narrative 07/07/2025 6:02 PM EDT EXAMINATION: CT CHEST WITHOUT CONTRAST LUNG CANCER SCREENING, LOW DOSE CLINICAL INFORMATION: Lung cancer screening. Current smoker. COMPARISON: Portions of previous 06/22/24 TECHNIQUE: Multidetector CT. Examination of the chest. Examination of the chest without IV contrast. Reformatting in the coronal and sagittal planes. Device: Picmonic VCT DLP: 109 mGy-cm CTDI: 3.22 Dose optimization was performed including the use of low-dose iterative reconstruction technique with automatic exposure control based on patient size. Type of contrast: None Volume of IV contrast: None Volume of contrast discarded: 0 mL FINDINGS: LUNG: No abnormality of the trachea or mainstem bronchi. LUNG NODULES: There are no suspicious nodules or masses. There are unchanged small nodules. The largest in the left apex measures approximately 0.4 cm (3/33). OTHER PULMONARY: No significant interstitial lung abnormalities. MEDIASTINUM: There are no enlarged mediastinal or hilar lymph nodes. No suspicious abnormalities of the esophagus. Unchanged low attenuating right thyroid nodule. CARDIAC: The heart is not enlarged. No pericardial fluid or thickening There are moderate coronary calcifications. VASCULAR: There is no thoracic aortic aneurysm. The main pulmonary artery is normal caliber PLEURA: There is no pleural fluid or pneumothorax AXILLA/CHEST WALL: There are no enlarged axillary lymph nodes. No chest wall mass demonstrated. VISUALIZED UPPER ABDOMEN: No suspicious abnormality on limited assessment of the visualized upper abdomen. MUSCULOSKELETAL: No suspicious focal bony lesion demonstrated. Procedure Note Sandeep Palmer MD - 07/07/2025 EXAMINATION: CT CHEST WITHOUT CONTRAST LUNG CANCER SCREENING, LOW DOSE CLINICAL INFORMATION: Lung cancer screening. Current smoker. COMPARISON: Portions of previous 06/22/24 TECHNIQUE: Multidetector CT. Examination of the chest. Examination of the chest without IV contrast. Reformatting in the coronal and sagittal planes. Device: [employer] VCT DLP: 109 mGy-cm CTDI: 3.22 Dose optimization was performed including the use of low-dose iterativereconstruction technique with automatic exposure control based on patientsize. Type of contrast: None Volume of IV contrast: None Volume of contrast discarded: 0 mL FINDINGS: LUNG: No abnormality of the trachea or mainstem bronchi. LUNG NODULES: There are no suspicious nodules or masses. There are unchanged small nodules. The largest in the left apex measuresapproximately 0.4 cm (3/33). OTHER PULMONARY: No significant interstitial lung abnormalities. MEDIASTINUM: There are no enlarged mediastinal or hilar lymph nodes. Nosuspicious abnormalities of the esophagus. Unchanged low attenuating right thyroid nodule. CARDIAC: The heart is not enlarged. No pericardial fluid or thickening There are moderate coronary calcifications. VASCULAR: There is no thoracic aortic aneurysm. The main pulmonary arteryis normal caliber PLEURA: There is no pleural fluid or pneumothorax AXILLA/CHEST WALL: There are no enlarged axillary lymph nodes. No chestwall mass demonstrated. VISUALIZED UPPER ABDOMEN: No suspicious abnormality on limited assessmentof the visualized upper abdomen. MUSCULOSKELETAL: No suspicious focal bony lesion demonstrated. IMPRESSION: No new suspicious mass or nodule. No suspicious interval change. LUNG RADS: Lung-RADS 2: BENIGN S Modifier (Significant or Potentially Significant Findings): Nonepresent No suspicious nonpulmonary findings. RECOMMENDATIONS: 12 month screening low dose CT -------- FINAL REPORT -------- Dictated By: Sandeep Palmer Dictated Date: 07/07/2025 17:54 ET Assigned Physician: Sandeep Palmer Reviewed and Electronically Signed By: Sandeep Palmer Signed Date: 07/07/2025 18:02 ET Workstation ID: [id number] Transcribed By: Self Edit Transcribed Date: 07/07/2025 17:54 ET us Nury Singleton MD IMG CT PROCEDURES Final Result * Annual BMP Blood Test (09/20/2023) Annual BMP Blood Test Abstracted Historical Provider HEALTH MAINTENANCE Final Result * Lipid panel (08/15/2022) LDL/HDL Ratio 2 0 - 4 Triglycerides 50 0 - 150 mg/dL Cholesterol 144 0 - 200 mg/dL HDL 69 >=40 mg/dL LDL Cholesterol 65 0 - 100 mg/dL Blood Venous blood specimen / Unknown Historical Provider LAB BLOOD ORDERABLES Smiley l Result from Last 3 Months or Most Recently Relevant to Health Maintenance Insurance MEDICAID [place] [address] Care Teams Search Marketing Coordinator Relationship Specialty Start Date End Date Dio Jauregui MD [address] [place] [id number] PCP - General Internal Medicine 02/20/25
--- OUTSIDE RECORDS SUMMARY | 2025-07-08 08:58 | XMS_ITS | Encounter Summary ---
Author Organization [employer] Address [address] [place] [address] Care Team Providers Care Traveling Sales Executive Name Role Phone Dio Jauregui MD Primary Care Provider [phone] Reason for Visit * Reason Onset Date Comments New Patient appt 05/14/2024 Encounter Details Date Type Department Care Team ([facility] st Contact Info) Description 05/14/2024 Telephone [facility] [address] [place], [place] [phone] Dustin Samson MD [address] [place], [place] [phone] New Patient appt Social History Tobacco Use Types Packs/Day Years Used Date Smoking Tobacco: Never Assessed Sex and Gender Information Value Date Recorded Sex Assigned at Male 08/21/2022 10:21 AM EDT Legal Sex Male 10:21 AM EDT Gender Identity Male 08/21/2022 10:21 AM EDT Sexual Orientation Straight 08/21/2022 10 :21 AM EDT documented as of this encounter Miscellaneous Notes * Telephone Encounter - Allison Rojo - 05/16/2024 3:46 PM EDT TC placed to patient for scheduling of new patient visit. Agreed to 06-16-2024 with [facility] Medical Conditions: Thyroid, High Blood Pressure Apptmnt reminder and release form sent via mail . * Telephone Encounter - Allison Rojo - 05/14/2024 9:58 AM EDT Contact pt to schedule new pt appt pt is currently at work and stated will return call wend available. * Telephone Encounter - Kyle Junior Aldrich - 05/14/2024 9:31 AM EDT Tc from pt Spouse requesting a New Patient appt urgently. Spouse explains Medical issues of Thyroid, High Blood Pressure, needing referrals for Vascular, Cardiology, [employer], and pt is currently taking medications. [facility] Facility Pt used to be [facility] pt back in 2015 Spouse explains to please call and let know if we could booked if not to look somewhere else. documented in this encounter Plan of Treatment Upcoming Encounters Date Type Department Care Team (Late st Contact Info) Description 07/13/2025 9:00 AM EDT Office Visit [facility] [address] [place] [address] Dio Jauregui MD [address] [place] [address] documented as of this encounter Visit Diagnoses Not on filedocumented in this encounter Care Teams Traveling Sales Executive Relationship Specialty Start Date End Date Dio Jauregui MD [address] [place] [address] PCP - General Internal Medicine 06/16/24 documented as of this encounter
--- OUTSIDE RECORDS SUMMARY | 2025-07-08 08:58 | XMS_ITS | Encounter Summary ---
Author Organization [employer] Address [address] [facility] [address] [place] [address] Care Team Providers Care Digital Producer Name Role Phone Dio Jauregui MD Primary Care Provider [phone] Encounter Details Date Type Department Care Team ([facility] st Contact Info) Description 03/04/2025 Orders Only [facility] PEDS [address] [place], [place] [phone] ProviderGm MD Social History Tobacco Use Types [...] 07/13/2025 9:00 AM EDT Office Visit [facility] [address] [place] [address] Dio Jauregui MD [address] [place] [address] documented as of this encounter Procedures Procedure Name Priority Date/Time Associated Diagnosis Comments HM COLONOSCOPY Routine 07/30/2023 4:21 PM EDT documented in this encounter Results * Hm Colonoscopy (07/30/2023 4:21 PM EDT) Historical Provider HEALTH MAINTENANCE Final Result documented in this encounter Visit Diagnoses Not on filedocumented in this encounter Care Teams Digital Producer Relationship Specialty Start Date End Date Dio Jauregui MD [address] [place] [address] PCP - General Internal Medicine 06/16/24 documented as of this encounter
--- OUTSIDE RECORDS SUMMARY | 2025-07-08 08:58 | XMS_ITS | Clinical Summary ---
Author Organization [employer] Address [address] [facility] [address] [place] [address] Care Team Providers Care Dip Stand Loader Name Role Phone Dio Jauregui MD Primary Care Provider [phone]- [phone] Allergies No known active allergies Medications amLODIPine (Norvasc) 10 MG tabletIndications :Primary hypertension Take 1 tablet (10 mg) by mouth Once per day. 90 tablet 3 06/16/2024 Active atorvastatin (Lipitor) 20 MG tabletIndications :Primary hypertension Take 1 tablet (20 mg) by mouth Once per day. 90 tablet 3 06/16/2024 Active hydroCHLOROthiazi de 12.5 MG tabletIndications :Primary hypertension Take 1 tablet (12.5 mg) by mouth Once per day. 90 tablet 3 06/16/2024 Active Ferrous Sulfate (iron) 325 (65 Fe) MG tabletIndications :Iron deficiency 1 tab once a day 30 tablet 11 06/16/2024 Active Aspirin Low Dose 81 MG EC tabletIndications :Primary hypertension TAKE 1 TABLET BY MOUTH EVERY DAY 90 tablet 3 06/01/2025 Active Active Problems Problem Noted Date Diagnosed Date Right thyroid nodule 02/25/2025 Ectatic aorta 02/25/2025 Primary hypertension 06/16/2024 Encounters Date Type Department Care Team Description 06/01/2025 Refill [facility]ED[facility] [address] [place] [address] Dio Jauregui MD Primary hypertension from Last 3 Months Social History Tobacco Use Types Packs/Day Years Used Date Smoking Tobacco: Former Cigarettes 1 61.1 S tarted: 06/16/1964 Tobacco Cessation:Counseling Given: No Comments:Quit smoking on 04/2020. Smoked average 1 pd x 60 years. [...] Orientation Straight 08/21/2022 10 :21 AM EDT Last Filed Vital Signs Vital Sign Reading Time Taken Comments Blood Pressure 135/64 02/25/2025 8:58 AM EDT Pulse 58 02/25/2025 8:58 AM EDT Temperature 36.6 C (97.9 F) 02/25/2025 8:58 AM EDT Respiratory Rate 20 02/25/2025 8:58 AM EDT Oxygen Saturation 99% 02/25/2025 8:58 AM EDT Inhaled Oxygen Concentration - - Weight 74.8 kg (165 lb) 02/25/2025 8:58 AM EDT Height 175.3 cm (5' 9 ) 02/25/2025 8:58 AM EDT Body Mass Index 24.37 02/25/2025 8:58 AM EDT Plan of Treatment Upcoming Encounters Date Type Department Care Team (Late st Contact Info) Description 07/13/2025 9:00 AM EDT Office Visit [facility] [address] [place] [address] Dio Jauregui MD [address] [place] [address] Health Maintenance Due Date Last Done Comments CT Colonography 1950 Depression Screening 1950 FIT DNA/Cologuard 1950 FIT 1950 FOBT 1950 Sigmoidoscopy 1950 Alcohol/Substance Use Screening 1962 Hepatitis C Screening 1968 DTaP/Tdap/Td Vaccines (1 - Tdap) 1969 Pneumococcal Vaccine: 50+ Years (1 of 1 - PCV) 2000 Zoster Vaccines (1 of 2) 2000 RSV Patients and Patients Aged 60 years or older (1 - 1-dose 75+ series) 2025 SDOH Screening 06/09/2025 06/09/2024 COVID-19 Vaccine (4 - 2024-2 6 season) 2025 01/06/2023, 02/09/2021, 01/18/2021 Influenza Vaccine (#1) 2025 Tobacco Screening 08/06/2025 08/06/2024 Lipid Panel 06/17/2029 06/17/2024 Colonoscopy 07/30/2033 07/30/2023 Colorectal Cancer Screening 07/30/2033 HIB Vaccines Aged Out No longer eligi [...] patient's age to complete this topic Meningococcal Vaccine Aged Out No josé russell eligible based on patient's age to complete this topic RSV under 20 months Aged Out No longe r eligible based on patient's age to complete this topic Rotavirus Vaccines Aged Out No longer eligible based on patient's age to complete this topic Procedures Procedure Name Priority Date/Time Associated Diagnosis Comments LIPID PANEL, STANDARD Routine 06/17/2024 8:27 AM EDT Primary hypertension Aneurysm of ascending aorta without rupture (CMS/HCC) COLONOSCOPY Routine 07/30/2023 4:21 PM EDT from Last 3 Months or Most Recently Relevant to Health Maintenance Results * Lipid Panel, Standard (06/17/2024 8:27 AM EDT) Triglycerides 55 <150 mg/dL [facility] Comment:Desirable Triglyceri de: less than 150 mg/dLBorderline High Triglyceride 150-199 mg/dLHigh Triglyceride: 200-499 mg/dLVery High Triglyceride: greater than or equal to 5OO mg/dL Cholesterol 150 <200 mg/dL [facility] Comment:Desirable Cholestero l: less than 200 mg/dLBorderline High Cholesterol: 200-239 mg/dLHigh Cholesterol: greater than 239 mg/dL LDL Cholesterol Calculated 83 <100 mg/dL [facility] Comment:Desirable LDL: less than 100 mg/dLNear Optimal/Above Optimal LDL: 110- 129 mg/dLBorderline High LDL: 130-159 mg/dLHigh LDL: 160-189 mg/dLVery High LDL: greater than or equal to 190 mg/dL HDL Cholesterol 56 >40 mg/dL [facility] Comment:Desirable HDL: great er than 40 mg/dL Note: This HDL assay may give artificially low results in patients with liver disease. Blood Venous blood specimen / Unknown 06/17/2024 8:27 AM EDT 06/17/2024 2:38 PM EDT us Dio Jauregui MD LAB BLOOD ORDERABLES Final Result [facility] [address] [place] [phone] * Colonoscopy (07/30/2023 4:21 PM EDT) us Historical Provider HEALTH MAINTENANCE Final Result from Last 3 Months or Most Recently Relevant to Health [place] [address] [facility] MEDICARE [place] [address] [place] [address] Care Teams Dip Stand Loader Relationship Specialty Start Date End Date Dio Jauregui MD [address] [place] [address] ABRAHAM Gilbert [address] PCP - General Internal Medicine 06/16/24
[2025-07-08 14:18] LABS: MANUAL DIFF FLAG NO
[2025-07-08 14:31] LABS: Hematocrit 39.6 % (42.0-52.0); Hemoglobin 13.2 g/dl (14.0-18.0); Imm Gran Abs Auto 0.03 X10*3/uL (0.00-0.03); Imm Gran Pct Auto 0.4 % (0.0-0.4); Lymphocytes Absolute Auto 1.9 X10*3/uL (1.2-4.9); Mean Corpuscular HGB Conc 33.3 g/dl (31.0-36.0); Mean Corpuscular Hemoglobin 28.4 pg (27.0-33.0); Mean Corpuscular Volume 85.3 fL (80.0-98.0); NRBC Abs Auto 0.000 X10*3/uL (0.0-0.012); NRBC Pct Auto 0.0 /100WBC (0.0-0.2); Platelet Count 333 X10*3/uL (160-400); Red Blood Count 4.64 X10*6/uL (4.60-5.80); Reticulocytes Absolute 0.040 X10*6/uL (0.026-0.095); White Blood Count 8.5 X10*3/uL (4.8-10.8)
[2025-07-08 14:46] LABS: Cholesterol 148 mg/dL (<200); HDL Cholesterol 57 mg/dL (>40); Iron 85 mcg/dL (45-160); Magnesium 2.2 mg/dL (1.6-2.6); Percent Iron Saturation 31 % (15-50); Total Iron Binding Capacity 270 mcg/dL (228-428); Triglycerides 64 mg/dL (<150); Unsaturated Iron Binding 185 ug/dL
== END 2025-07-08 08:09 | disposition home or self-care (01) ==
LOC: HO.CHCLDS 08:08
PROVIDERS: Visit Provider Internal Medicine
DX: D50.9 Iron deficiency anemia, unspecified (principal); I10 Essential (primary) hypertension; R25.2 Cramp and spasm
CPT/HCPCS: 36415; 80061; 83540; 83735; 85025; 85045

== ENCOUNTER 2025-08-25 15:58 | Outpatient (REF) | payer MEDICARE, SELFPAY ==
--- NOTE | ~2025-08-25 | US_ITS ---
EXAMINATION: US THYROID HISTORY: E04.1 - Nontoxic single thyroid nodule TECHNIQUE: Real-time grayscale ultrasound imaging was performed and images were reviewed. COMPARISON: Comparison is made with the prior examination dated 07/15/2024. FINDINGS: SIZE: The right thyroid lobe measures 4.7 x 2.5 x 2.6 cm. The left thyroid lobe measures 4.0 x 1.4 x 1.5 cm. The isthmus measures 4 mm. FLOW: Flow to the gland is normal. ECHOGENICITY: The echotexture of the gland is homogeneous. NODULES: Again seen is a single right-sided nodule as described below: Nodule #: 1 Location: Midportion of the right thyroid lobe measuring 2.4 x 2.1 x 2.3 cm (previously 2.4 x 1.9 x 2.3 cm). Shape: Wider than tall (0 points) Margins: Smooth (0 points) Echotexture: Isoechoic (1 point) Composition: Mostly solid (2 points) Calcifications: None (0 points) Total points: 3 TIRADS: TR3: Mildly suspicious. US/US thyroid IMPRESSION: Stable mildly suspicious nodule in the midportion of the right thyroid lobe. As the prior ultrasound-guided fine-needle aspiration was nondiagnostic (10/01/2024), repeat biopsy should be considered. ACR TI-RADS Guidelines TR1 (0 points): Benign. No follow-up or biopsy required TR2 (2 points): Not Suspicious. No biopsy or follow up indicated TR3 (3 points): Mildly Suspicious. FNA if >= 2.5 cm, Follow if >= 1.5 cm TR4 (4-6 points): Moderately Suspicious. FNA if >= 1.5 cm, Follow if >= 1.0 cm TR5 (>=7 points): Highly Suspicious. FNA if >= 1.0 cm, Follow if >= 0.5 cm Electronically signed by: Ranjeet Crews MD 08/26/2025 07:25 AM [facility]
--- OUTSIDE RECORDS SUMMARY | 2025-08-25 18:22 | XMS_ITS | Encounter Summary ---
Author Organization [employer] Address [address] [facility] 7t [place] [address] Care Team Providers Care Marketing Assistant Retail Division Name Role Phone Dio Jauregui MD Primary Care Provider [phone] Encounter Details Date Type Department Care Team ([facility] st Contact Info) Description 07/09/2025 Orders Only [facility] CH[facility] MED & PEDS [address] [place], [place] [phone] ProviderGm MD Social History Tobacco Use Types Packs/Day Years Used Date Smoking Tobacco: Former Cigarettes 1 61.2 S tarted: 06/16/1964 Comments:Quit smoking on 04/22 020. Smoked average 1 pd x 60 years. Depression Answer Date Recorded Patient Health Questionnaire-9 Score 0 07/13/2025 Patient Health Questionnaire-9 Score 0 07/13/2025 Last PHQ-9: Questionnaire Data Not on file 0 07/13/2025 Housing Stability Answer Date Recorded What is your housing situation today? I have corneliusgerda gomez 07/13/[address] you li ve. Do you have problems with any of the following? None of the above 07/13/2025 Food Insecurity Answer Date Recorded Within the past 12 months, y ou worried that your food would run out before you got money to buy more: Never True 07/13/2025 Within the past 12 months,th e food you bought just didn't last and you didn't have enough money to get more: Never True Transportation Answer Date Recorded In the past 12 months, has l ack of transportation kept you from medical appts, meetings, work or from getting things needed for daily living? No 07/13/2025 Utilities Answer Date Recorded In the past 12 months, has t he electric, gas, oil or water company threatened to shut off services in your home? No 07/13/2025 Depression Answer Date Recorded Patient Health Questionnaire-2 Score 0 07/13/2025 Internet Access Answer Date Recorded Internet Access Q1 Yes 07/13/2025 Internet Access Q2 Not on file 07/13/2025 Sex and Gender Information Value Date Recorded Sex Assigned at Male 08/21/2022 10:21 AM EDT Legal Sex Male 10:21 AM EDT Gender Identity Male 08/21/2022 10:21 AM EDT Sexual Orientation Straight 08/21/2022 10 :21 AM EDT documented as of this encounter Plan of Treatment Not on file documented as of this encounter Procedures Procedure Name Priority Date/Time Associated Diagnosis Comments CT LUNG SCREENING Routine 06/27/2025 9:26 AM EDT documented in this encounter Results * CT Lung Screening Low dose (06/27/2025 9:26 AM EDT) Anatomical Region Laterality Modality Lung Computed Tomogra phy us Historical Provider MD LIZ CT PROCEDURES Final R esult documented in this encounter Visit Diagnoses Not on filedocumented in this encounter Care Teams Marketing Assistant Retail Division Relationship Specialty Start Date End Date Dio Jauregui MD [address] [place] [phone] PCP - General Internal Medicine 06/16/24 documented as of this encounter
--- OUTSIDE RECORDS SUMMARY | 2025-08-25 18:22 | XMS_ITS | Encounter Summary ---
Author Organization [employer] Address [address] [facility] 7t [place] [address] Care Team Providers Care Trial Examiner Name Role Phone Dio Jauregui MD Primary Care Provider [phone] Encounter Details Date Type Department Care Team ([facility] st Contact Info) Description 02/20/2025 Orders Only [facility] CHC MED & PEDS [address] [place], [place] [phone] ProviderGm MD Social History Tobacco Use Types [...] on filedocumented in this encounter Care Teams Trial Examiner Relationship Specialty Start Date End Date Dio Jauregui MD [address] [place] [phone] PCP - General Internal Medicine 06/16/24 documented as of this encounter
--- OUTSIDE RECORDS SUMMARY | 2025-08-25 18:22 | XMS_ITS | Clinical Summary ---
Author Organization [address] [place] [address] [place] [phone] Phone Care Team Providers Care Hospice Administrator Name Role Phone Dio Jauregui MD Primary Care Provider [phone] Allergies No known active allergies Medications hydroCHLOROthiaz [...] (09/17/2024): -Carotid and possible left subclavian disease -[place]ull[place] bruits on exam so obtained a carotid [...] at bedtime and baby aspirin Ectatic aorta ([facility] V24) 06/15/2021 Overview (02/20/2025): -See CT under [...] - 06/27/2025 11:59 PM EDT Hospital Encounter [facility] CT Scan [address] [place] [address] Encounter for screening for malignant neoplasm of respiratory organs; Nicotine dependence, cigarettes, uncomplicated Discharge Disposition: Home or Self Care 06/04/2025 Telephone Lung Screening Program - [place] [address] [facility] [address] [place] [address] Janice Ma MA from Last [...] related to the patient) early of an AL No Known Problems Father doesn't kn ow [...] Signed Date: 07/07/2025 18:02 ET Workstation ID: [id number] Transcribed By: Self Edit Transcribed Date: 07/07/2025 17:54 ET Narrative 07/07/2025 6:02 PM EDT EXAMINATION: CT CHEST WITHOUT CONTRAST LUNG CANCER SCREENING, LOW DOSE CLINICAL INFORMATION: Lung cancer screening. Current smoker. COMPARISON: Portions of previous 06/22/24 TECHNIQUE: Multidetector CT. Examination of the chest. Examination of the chest without IV contrast. Reformatting in the coronal and sagittal planes. Device: Pockee VCT DLP: 109 mGy-cm CTDI: 3.22 Dose [...] in the coronal and sagittal planes. Device: LightspeTVtrip VCT DLP: 109 mGy-cm CTDI: 3.22 Dose [...] Signed Date: 07/07/2025 18:02 ET Workstation ID: [id number] Transcribed By: Self Edit Transcribed Date: 07/07/2025 [...] Insurance MEDICAID - [place] [employer] MEDICARE Care Teams Hospice Administrator Relationship Specialty Start Date End Date Dio Jauregui MD [address] [place] [address] PCP - General Internal Medicine 02/20/25
--- OUTSIDE RECORDS SUMMARY | 2025-08-25 18:22 | XMS_ITS | Clinical Summary ---
Author Organization [employer] Address [address] [facility] 7[address] [place] [address] Care Team Providers Care Bed Control Specialist Name Role Phone Dio Jauregui MD Primary Care Provider [phone] Allergies No known active allergies Medications hydroCHLOROthiazi de 12.5 MG tabletIndications :Primary hypertension Take 1 tablet (12.5 mg) by mouth Once per day. 90 tablet 3 06/16/2024 Active Ferrous Sulfate (iron) 325 (65 Fe) MG tabletIndications :Iron deficiency 1 tab once a day 30 tablet 11 06/16/2024 Active Aspirin Low Dose 81 MG EC tabletIndications :Primary hypertension TAKE 1 TABLET BY MOUTH EVERY DAY 90 tablet 3 06/01/2025 Active tiZANidine (Zanaflex) 2 MG tabletIndications :Leg cramps Take 1 tablet (2 mg) by mouth every 6 (six) hours if needed for muscle spasms for up to 10 days. 30 tablet 07/13/2025 Active amLODIPine (Norvasc) 10 MG tabletIndications :Primary hypertension TAKE 1 TABLET (10 MG) BY MOUTH ONCE PER DAY. 90 tablet 3 07/24/2025 Active atorvastatin (Lipitor) 20 MG tabletIndications :Primary hypertension TAKE 1 TABLET (20 MG) BY MOUTH ONCE PER DAY. 90 tablet 3 07/24/2025 Active Active Problems Problem Noted Date Diagnosed Date Diverticulosis 07/13/2025 Internal hemorrhoids 07/13/2025 Right thyroid nodule 02/25/2025 Ectatic aorta 02/25/2025 Primary hypertension 06/16/2024 Encounters Date Type Department Care Team Description 07/23/2025 Refill [facility] CHC MED & PEDS [address] [place], [place] [phone] Dio Jauregui MD Primary hypertension 07/13/2025 9:00 AM EDT Office Visit [facility] MED & PEDS [address] [place] [address] Dio Jauregui MD Primary hypertension (Primary Dx); Right thyroid nodule; Ectatic aorta (CMS/HCC); Diverticulosis; Internal hemorrhoids; Normocytic anemia; Leg cramps 07/13/2025 Travel 07/10/2025 Telephone [facility] MED [facility] PEDS [address] [place] [address] Dio Jauregui MD Chart Prep 07/09/2025 Orders Only [facility] [address] [place] [address] Gm White MD 07/08/2025 Results Follow-Up [facility] [address] [place] [address] Dio Jauregui MD Lipid Panel, Standard 06/01/2025 Refill [facility] MED [facility] PEDS [address] [place] [address] Dio Jauregui MD Primary hypertension from Last 3 Months Social History Tobacco Use Types Packs/Day Years Used Date Smoking Tobacco: Former Cigarettes 1 61.2 S tarted: 06/16/1964 Passive Smoke Exposure: Never Smokeless Tobacco: Never Tobacco Cessation:Counseling Given: No Comments:Quit smoking on 04/2020. Smoked average 1 pd x 60 years. Depression Answer Date Recorded Patient Health Questionnaire-9 Score 0 07/13/2025 Patient Health Questionnaire-9 Score 0 07/13/2025 Last PHQ-9: Questionnaire Data Not on file 0 07/13/2025 Housing Stability Answer Date Recorded What is your housing situation today? I have cornelius jason 07/13/[address] you li [...] Sign Reading Time Taken Comments Blood Pressure 144/72 07/13/2025 9:01 AM EDT Pulse 51 07/13/2025 9:01 AM EDT Temperature 36.2 C (97.2 F) 07/13/2025 9:01 AM EDT Respiratory Rate 21 07/13/2025 9:01 AM EDT Oxygen Saturation 98% 07/13/2025 9:01 AM EDT Inhaled Oxygen Concentration - - Weight 74.8 kg (165 lb) 07/13/2025 9:01 AM EDT Height 175.3 cm (5' 9 ) 07/13/2025 9:01 AM EDT Body Mass Index 24.37 07/13/2025 9:01 AM EDT Plan of Treatment Health Maintenance Due Date Last Done Comments CT Colonography 1950 FIT DNA/Cologuard 1950 FIT 1950 FOBT 1950 Sigmoidoscopy 1950 RSV Patients and Patients Aged 60 years or older (1 - 1-dose 75+ series) 2025 COVID-19 Vaccine ( - 2024-2 6 season) 2025 01/06/2023, 02/09/2021, 01/18/2021 Influenza Vaccine (#1) 2026 Postp oned from 06/22/2025 (Patient Refused) Alcohol/Substance Use Screening 07/13/2026 07/13/2025 DTaP/Tdap/Td Vaccines (1 - Tdap) 07/13/2026 Postponed from 04/22 (Patient Refused) Depression Screening 07/13/2026 07/13/2025, 07/13/2025 Hepatitis C Screening 07/13/2026 Postpo ubaldo from 1968 (Patient Refused) Pneumococcal Vaccine: 50+ Years (1 of 1 - PCV) 07/13/2026 Postponed from 11/1999 (Patient Refused) SDOH Screening 07/13/2026 07/13/2025 Tobacco Screening 07/13/2026 07/13/2025 Zoster Vaccines (1 of 2) 07/13/2026 Pos tponed from 2000 (Patient Refused) Lipid Panel 07/08/2030 07/08/2025, 06/17/2024 Colonoscopy 07/30/2033 07/30/2023 Colorectal Cancer Screening [...] Associated Diagnosis Comments LIPID PANEL, STANDARD Routine 07/08/2025 8:10 AM EDT Primary hypertension MAGNESIUM Routine 07/08/2025 8:10 AM EDT Cramps of left lower extremity RETICULOCYTE COUNT Routine 07/08/2025 8: 10 AM EDT Microcytic anemia IRON AND TOTAL IRON BINDING CAPACITY Routine 07/08/2025 8:10 AM EDT Microcytic anemia CBC WITH AUTO DIFFERENTIAL Routine 07/08/2025 8:10 AM EDT Microcytic anemia CT LUNG SCREENING Routine 06/27/2025 9:2 6 AM EDT HM COLONOSCOPY Routine 07/30/2023 4:21 PM EDT from Last 3 Months or Most Recently Relevant to Health Maintenance Results * (ABNORMAL) CBC auto differential (07/08/2025 8:10 AM EDT) White Blood Count 8.5 4.8 - 10.8 X10*3/uL [facility] Red Blood Count 4.64 4.60 - 5.80 X10*6/uL [facility] Hemoglobin 13.2(L) 14.0 - 18.0 g/dl [facility] Hematocrit 39.6(L) 42.0 - 52.0 % [facility] Mean Corpuscular Volume 85.3 80.0 - 98.0 fL [facility] Mean Corpuscular Hemoglobin 28.4 27.0 - 33.0 pg [facility] Mean Corpuscular HGB Conc 33.3 31.0 - 36.0 g/dl [facility] Red Cell Distribution Width 13.9 11.0 - 16.0 % [facility] Platelet Count 333 160 - 400 X10*3/uL [facility] Mean Platelet Volume 10.7 9.4 - 12.4 fL [facility] Neutrophils Percent Auto 61.5 45 - 73 % [facility] Imm Gran Pct Auto 0.4 0.0 - 0.4 % [facility] Lymphocytes Percent Auto 22.6 20 - 40 % [facility] Monocytes Percent Auto 9.9 2 - 11 % [facility] Eosinophils Percent Auto 4.7(H) 0 - 4 % [facility] Basophils Percent Auto 0.9 0 - 2 % [facility] NRBC Pct Auto 0.0 0.0 - 0.2 /100WBC [facility] Neutrophils Absolute Auto 5.2 2.0 - 8.3 x10*3/uL [facility] Imm Gran Abs Auto 0.03 0.00 - 0.03 X10*3/uL [facility] Lymphocytes Absolute Auto 1.9 1.2 - 4.9 X10*3/uL [facility] Monocytes Absolute Auto 0.8 0.1 - 1.2 X10*3/uL [facility] Eosinophils Absolute Auto 0.4 0.0 - 0.4 X10*3/uL [facility] Basophils Absolute Auto 0.1 0.0 - 0.2 X10*3/uL [facility] NRBC Abs Auto 0.000 0.0 - 0.012 X10*3/uL [facility] Blood Venous blood specimen / Unknown 07/08/2025 8:10 AM EDT 07/08/2025 2:00 PM EDT us Dio Jauregui MD LAB BLOOD ORDERABLES Final Result Performing Organization Address City/[facility]/ZIP Co de Phone Number [facility] [address] [place] [phone] * Iron And Total Iron Binding Capacity (07/08/2025 8:10 AM EDT) Iron 85 45 - 160 mcg/dL [facility] Total Iron Binding Capacity 270 228 - 428 mcg/dL [facility] Percent Iron Saturation 31 15 - 50 % [facility] Unsaturated Iron Binding 185 ug/dL [facility] Blood Venous blood specimen / Unknown 07/08/2025 8:10 AM EDT 07/08/2025 2:00 PM EDT Dio Jauregui MD LAB BLOOD ORDERABLES Final Result Performing Organization Address City/[facility]/ZIP Co de Phone Number [facility] [address] [place] [phone] * Reticulocyte Count (07/08/2025 8:10 AM EDT) [facility] Reticulocytes Absolute 0.040 0.026 - 0.095 X10*6/uL [facility] Immature Retic Fraction 7.7 2.3 - 13.4 % [facility] Retic HGB Equivalent 32.3 30.0 - 35.0 pg [facility] Reticulocyte Percent 0.9 0.5 - 1.8 % [facility] Blood Venous blood specimen / Unknown 07/08/2025 8:10 AM EDT 07/08/2025 2:00 PM EDT us Dio Jauregui MD LAB BLOOD ORDERABLES Final Result Performing Organization Address [facility] Co de Phone Number [facility] [address] [place] [phone] * Magnesium (07/08/2025 8:10 AM EDT) [facility] Magnesium 2.2 1.6 - 2.6 mg/dL [facility] Blood Venous blood specimen / Unknown 07/08/2025 8:10 AM EDT 07/08/2025 2:00 PM EDT us Dio Jauregui MD LAB BLOOD ORDERABLES Final Result Performing Organization Address City/[facility]/ZIP Co de Phone Number [facility] [address] [place] [phone] * Lipid Panel, Standard (07/08/2025 8:10 AM EDT) [facility] Triglycerides 64 <150 mg/dL [facility] Comment:Desirable Triglyceri de: less than 150 mg/dLBorderline High Triglyceride 150-199 mg/dLHigh Triglyceride: 200-499 mg/dLVery High Triglyceride: greater than or equal to 5OO mg/dL Cholesterol 148 <200 mg/dL [facility] Comment:Desirable Cholestero l: less than 200 mg/dLBorderline High Cholesterol: 200-239 mg/dLHigh Cholesterol: greater than 239 mg/dL LDL Cholesterol Calculated 79 <100 mg/dL [facility] Comment:Desirable LDL: less than 100 mg/dLNear Optimal/Above Optimal LDL: 110- 129 mg/dLBorderline High LDL: 130-159 mg/dLHigh LDL: 160-189 mg/dLVery High LDL: greater than or equal to 190 mg/dL HDL Cholesterol 57 >40 mg/dL [facility] Comment:Desirable HDL: great er than 40 mg/dL Note: This HDL assay may give artificially low results in patients with liver disease. Blood Venous blood specimen / Unknown 07/08/2025 8:10 AM EDT 07/08/2025 2:00 PM EDT us Dio Jauregui MD LAB BLOOD ORDERABLES Final Result [facility] [address] [place] [phone] * CT Lung Screening Low dose (06/27/2025 9:26 AM EDT) Anatomical Region Laterality Modality Lung Computed Tomogra phy Historical Provider IMG CT PROCEDURES Final R esult * Hm Colonoscopy (07/30/2023 4:21 PM EDT) Historical Provider HEALTH MAINTENANCE Final Result from Last 3 Months or Most Recently Relevant to Health Maintenance Insurance [facility] MEDICARE ADVANTAGE HMO [place] [id number] [place] [id number] [place] [id number] Care Teams Bed Control Specialist Relationship Specialty Start Date End Date Dio Jauregui MD [address] [place] [address] [place]RAHAM [place] [address] PCP - General Internal Medicine 06/16/24
--- OUTSIDE RECORDS SUMMARY | 2025-08-25 18:22 | XMS_ITS | Encounter Summary ---
Author Organization [employer] Address [address] [facility] 7t [place] [address] Care Team Providers Care Top Collar Maker Name Role Phone Dio Jauregui MD Primary Care Provider [phone] Encounter Details Date Type Department Care Team ([facility] st Contact Info) Description 03/04/2025 Orders Only [facility] CHC MED & PEDS [address] [place], [place] [phone] ProviderGm MD Social History Tobacco Use Types [...] * Hm Colonoscopy (07/30/2023 4:21 PM EDT) us Historical Provider HEALTH MAINTENANCE Final Result documented in this encounter Visit Diagnoses Not on filedocumented in this encounter Care Teams Top Collar Maker Relationship Specialty Start Date End Date Dio Jauregui MD [address] [place] [phone] PCP - General Internal Medicine 06/16/24 documented as of this encounter
--- OUTSIDE RECORDS SUMMARY | 2025-08-25 18:22 | XMS_ITS | Encounter Summary ---
Author Organization [employer] Address [address] [facility] [address] [place] [address] Care Team Providers Care Bowling Alley Floors Installer Name Role Phone Dio Jauregui MD Primary Care Provider [phone] Encounter Details Date Type Department Care Team ([facility] st Contact Info) Description 07/08/2025 Results Follow-Up [facility] CHC MED & PEDS [address] [place], [place] [phone] Dio Jauregui MD [address] [place] [address] Lipid Panel, Standard Social History Tobacco Use Types Packs/Day Years Used Date Smoking Tobacco: Former Cigarettes 1 61.2 S tarted: 06/16/1964 Comments:Quit smoking on 04/22 020. Smoked average 1 pd x 60 years. Housing Stability Answer Date Recorded What is your housing situation today? I have corneliusgerda gomez 06/09/[address] you [...] on file documented as of this encounter Visit Diagnoses Not on filedocumented in this encounter Care Teams Bowling Alley Floors Installer Relationship Specialty Start Date End Date Dio Jauregui MD [address] [place] [phone] PCP - General Internal Medicine 06/16/24 documented as of this encounter
--- OUTSIDE RECORDS SUMMARY | 2025-08-25 18:22 | XMS_ITS | Encounter Summary ---
Author Organization [employer] Address [address] [place] [address] Care Team Providers Care Field Crop Grower Name Role Phone Dio Jauregui MD Primary Care Provider [phone] Reason for Visit * Reason Onset Date Comments New Patient appt 05/14/2024 Encounter Details Date Type Department Care Team ([facility] st Contact Info) Description 05/14/2024 Telephone [facility] [address] [place], [place] [phone] Dustin Samson MD [address] [place], [place] [phone] New Patient appt Social History Tobacco Use [...] call wend available. * Telephone Encounter - Jaymeerrol Vernon Aldrich - 05/14/2024 9:31 AM EDT Tc from pt Spouse requesting a New Patient appt urgently. Spouse explains Medical issues of Thyroid, High Blood Pressure, needing referrals for Vascular, Cardiology, Mobile Tester, and pt is currently taking medications. [facility] Facility Pt used to be [facility] pt back in 2015 Spouse explains to please call and let know if we could booked if not to look somewhere else. documented in this encounter Plan of Treatment Not on file documented as of this encounter Visit Diagnoses Not on filedocumented in this encounter Care Teams Field Crop Grower Relationship Specialty Start Date End Date Dio Jauregui MD [address] [place] [phone] PCP - General Internal Medicine 06/16/24 documented as of this encounter
--- OUTSIDE RECORDS SUMMARY | 2025-08-25 18:22 | XMS_ITS | Data Portability ---
Author Organization [place] - [facility], Allergy Address [address] [place] [address] Care Team Providers Care Sales Development Executive Name Role Phone KELLI ROMERO Primary Care Provider Assessment Encounter Date Assessment Date Assessment LastModified by Organization Details LastModified Time 03/05/2025 03/05/2025 74-year-old male presents for cerumen removal and evaluation of foreign body in the ear. Cerumen impaction removed bilaterally. Bilateral TMs are intact. No foreign body was noted in the ears bilaterally. He will follow-up in 6 months for cerumen removal, or sooner with concerns. [email or web address] Not available 03/05/2025 10:19:34 Plan of Treatment Reminders Order Date Submit Date Provider Last Modified By Organization Details Last Modified Time Details Appointments Establish ed 15 2024 09:00A M CHAN EDOUARD PA-C Not available Not available Not available Lab None recorded. Referral None recorded. Procedures None recorded. Surgeries None recorded. Imaging None recorded. Medication Orders None recorded. Patient TargetsNo targets recorded. Patient InstructionsNo instructions recorded. Reason for Referral None Reported. Problems Name Problem SNOMED Code Status Onset Date Resolution Date Notes Provider Name and Address Organization Details Recorded Time Mixed conductiv e and sensorine ural hearing loss, bilateral [id number] Active 2020 Mixed conductiv e and sensorine ural hearing loss, bilateral ; Note: Date Diagnosed : 03/23/2021 2:50 PM (H90.6) Not Available [facility] 4 02:58:41 Foreign body in left ear 80235167390 997198 Active 2021 Foreign body in left ear, initial encounter ; Note: Date Diagnosed : 11/09/2021 9:09 AM (T16.2XXA ) Not Available [facility] 4 02:58:43 Impacted cerumen of bilateral ears 81265257688 10532 Active 2021 Impacted cerumen, bilateral ; Note: Date Diagnosed : 11/09/2021 9:09 AM (H61.23) Not Available [facility] 4 02:58:41 Chronic rhinitis 05971401 Active 2021 Chronic rhinitis; Note: Date Diagnosed : 02/13/2022 2:46 PM (J31.0) Not Available [facility] 4 02:58:43 Foreign body in right ear 23136100234 908491 Active 2022 Foreign body in right ear, initial encounter ; Note: Date Diagnosed : 10/31/2022 9:09 AM (T16.1XXA ) Not Available [facility] 4 02:58:42 Impacted cerumen in right ear 92072338143 45804 Active 2022 Impacted cerumen, right ear; Note: Date Diagnosed : 10/31/2022 9:09 AM (H61.21) Not Available [facility] 4 02:58:42 Problem Notes None recorded. Procedures Surgical History Date Name Laterality Status Provider Name and Address Organization Details Recorded Time Cerumen removal without microscope bilat completed CHAN EDOUARD PA-C [address] [place] [address], [phone], [facility] - [facility] 03/05/2025 10:19:02 Imaging Results None recorded. Procedure Notes None recorded. Medical Equipment None Reported. Medications Name Sig Start Date Stop Date Status Note LastModified by Organization Details LastModified Time atorvasta tin 40 mg tablet 2021 active Medicatio n ID: [id number] Br and Name: atorvasta tin Send Method: E-Prescri bed Subs Allowed: subs OK Medica tionGener icName: atorvasta tin Not Available Not Available Not Available atorvasta tin 20 mg tablet TAKE 1 TABLET (20 MG) BY MOUTH ONCE PER DAY. active Not Available Not Available No t Available cetirizin e 10 mg tablet 03/23 completed Medicatio n ID: [id number] Br and Name: cetirizin e Send Method: E-Prescri bed Subs Allowed: subs OK Medica tionGener icName: cetirizin e Not Available Not Available Not Available aspirin 81 mg tablet,de layed release TAKE 1 TABLET BY MOUTH EVERY DAY active Not Available Not Available No t Available amlodipin e 10 mg tablet TAKE 1 TABLET (10 MG) BY MOUTH ONCE PER DAY. active Not Available Not Available No t Available hydrochlo rothiazid e 12.5 mg tablet TAKE 1 TABLET BY MOUTH EVERY DAY active Not Available Not Available No t Available Flonase Allergy Relief 50 mcg/actua tion nasal spray,amalia pension 2 puff once a day 2021 active Medicatio n ID: [id number] Du ration Value: 90 Brand Name: Flonase Allergy Relief Se nd Method: E-Prescri bed Subs Allowed: subs OK Medica tionGener icName: Flonase Allergy Relief Not Available Not Available Not Available Vitals None Recorded Social History None recorded. Functional Status None recorded. Mental Status None recorded. Family History Nothing Reported. Medical History No medical history recorded. Past Encounters Encounter ID Performer Location Encounter Start Date Encounter Closed Date Diagnosis/Indication Diagnosis SNOMED-CT Code Diagnosis ICD10 Code Diagnosis IMO Codes Diagnosis Note [id number] CHAN EDOUARD PA-C [facility] [address] [address] 03/05/2025 09:01:34 03/05/2025 09:50:40 Impacted cerumen of bilateral ears [id number] 725921 H61.23 Health Concerns Section Related Observation LastModified by Organization Detai ls LastModified Time None Recorded Concern Status LastModified by Organization Details LastModified Time None Recorded Advance Directives Directive None Recorded Payers Insurance Date Sequence Insurance Name Policy Number Policy Roa Covered Member ID Roa Member ID Guarantor Name 03/05/[address] [facility] (MEDICARE REPLACEMENT/A DVANTAGE - HMO) [id number] Guille Shanks [id number] Guille Shanks Notes Date Note Type Note Provider Name and Address Organization Details Recorded Time 03/05/2025 text/html ROS as noted in the HPI 74-year-old male presents for cerumen removal. He thinks that he has a hearing aid piece in his right ear. Denies otalgia, otorrhea, and changes in his hearing. SYLVIA MCINTOSH MD [address] [place] [address], [place], [address], [facility] - [facility] 03/05/2025 12:17:13
== END 2025-08-25 15:59 | disposition home or self-care (01) ==
LOC: HO.US 15:58
PROVIDERS: PCP Internal Medicine; Visit Provider Student in an Organized Health Care Education/Training Program
DX: E04.1 Nontoxic single thyroid nodule (principal)
CPT/HCPCS: 76536

== ENCOUNTER → 2025-08-25 15:59 | Outpatient (BNV) | payer MEDICARE, SELFPAY | PROVIDERS: PCP Internal Medicine; Visit Provider Radiology Diagnostic Radiology | DX: E04.1 Nontoxic single thyroid nodule (principal) | CPT/HCPCS: 76536 ==

== ENCOUNTER 2025-09-14 14:45 | Outpatient (REF) | payer MEDICARE, SELFPAY ==
--- NOTE | ~2025-09-14 | US_ITS ---
EXAMINATION: US ANKLE BRACHIAL INDICES (ABIS) CLINICAL INFORMATION: Leg cramps COMPARISON: None available. TECHNIQUE: Lateral ankle pressure measurements and ankle brachial indices were obtained of the bilateral lower extremity arterial system. The study was performed only at rest. FINDINGS: BILATERAL LOWER EXTREMITIES WITH ABIs: RIGHT LEG: Ankle-brachial index: 1.2 LEFT LEG: Ankle-brachial index: 0.94 ROMAIN Reference: 0.9 - 1.4 = normal - no significant arterial disease 0.7 - 0.89 = mild peripheral arterial disease 0.51 - 0.69 = moderate peripheral arterial disease 0.50 = severe peripheral arterial disease US/US ROMAIN complete IMPRESSION: Normal ankle brachial indices bilaterally. This can be artifactually elevated with vessel wall calcification/noncompressibility. Consider follow-up real-time grayscale and Doppler ultrasound of the bilateral lower extremities if clinically warranted. Electronically signed by: Teresa Tatum MD 09/14/2025 04:20 PM [facility]
--- OUTSIDE RECORDS SUMMARY | 2025-09-14 19:35 | XMS_ITS | Encounter Summary ---
Author Organization [employer] Address [address] [facility] [address] [place] [address] Care Team Providers Care Family Consumer Science Teacher Name Role Phone Dio Jauregui MD Primary Care Provider [phone] Encounter Details Date Type Department Care Team ([facility] st Contact Info) Description 02/20/2025 Orders Only [facility] [address] [place], [place] [id number] ProviderGm MD Social History Tobacco Use Types [...] on filedocumented in this encounter Care Teams Family Consumer Science Teacher Relationship Specialty Start Date End Date Dio Jauregui MD [address] [place] [address] PCP - General Internal Medicine 06/16/24 documented as of this encounter
--- OUTSIDE RECORDS SUMMARY | 2025-09-14 19:35 | XMS_ITS | Clinical Summary ---
Author Organization [address] [place] [address] [place] [phone] Phone Care Team Providers Care Therapy Director Name Role Phone Dio Jauregui MD Primary Care Provider [phone] Allergies No known active allergies Medications hydroCHLOROthiaz [...] (09/17/2024): -Carotid and possible left subclavian disease -Mccracken bruits on exam so obtained a carotid [...] at bedtime and baby aspirin Ectatic aorta ([facility] V24) 06/15/2021 Overview (02/20/2025): -See CT under [...] - 06/27/2025 11:59 PM EDT Hospital Encounter [facility] CT Scan [address] [place] [address] Encounter for screening for malignant neoplasm of respiratory organs; Nicotine dependence, cigarettes, uncomplicated Discharge Disposition: Home or Self Care from Last 3 Months Surgical History Surgery [...] related to the patient) early of an NM No Known Problems Father doesn't kn ow much about him, not involved with them until later in life Other: mva Mother Heart attack Sister early 60s Stroke Sister Relation Name Status Comments Brother Father Mother Sister Alive Social History Tobacco Use Types Packs/Day Years Used Date Smoking Tobacco: Former Cigarettes 0.3 Q uit: 05/18/2021 Smokeless Tobacco: Never Alcohol [...] - 1-dose 75+ series) 2025 COVID-19 Vaccine (4 - 2024- season) 2025 01/06/2023, 02/09/2021, 01/18/2021 Influenza Vaccine (#1) 2025 Cholesterol Screening (Lipid Panel) 06/17/2029 06/17/2024, 08/15/2022 Lung Cancer Screening (Low Dose CT) Discontinued 06/27/2025, 06/24/2024, 06/22/2024, Additional history exists HIB Vaccines Aged Out No longer eligi [...] of respiratory organs Nicotine dependence, cigarettes, uncomplicated ANNUAL BMP BLOOD TEST Routine 09/20/2023 LIPID [...] Signed Date: 07/07/2025 18:02 ET Workstation ID: [id number] Transcribed By: Self Edit Transcribed Date: 07/07/2025 17:54 ET Narrative 07/07/2025 6:02 PM EDT EXAMINATION: CT CHEST WITHOUT CONTRAST LUNG CANCER SCREENING, LOW DOSE CLINICAL INFORMATION: Lung cancer screening. Current smoker. COMPARISON: Portions of previous 06/22/24 TECHNIQUE: Multidetector CT. Examination of the chest. Examination of the chest without IV contrast. Reformatting in the coronal and sagittal planes. Device: SpectralCast VCT DLP: 109 mGy-cm CTDI: 3.22 Dose [...] in the coronal and sagittal planes. Device: Lightspeed VCT DLP: 109 mGy-cm CTDI: 3.22 Dose [...] Signed Date: 07/07/2025 18:02 ET Workstation ID: [id number] Transcribed By: Self Edit Transcribed Date: 07/07/2025 17:54 ET us Nury Singleton MD [facility] CT PROCEDURES Final Result * Annual BMP [...] - [place] [employer] MEDIC[place] Care Teams Therapy Director Relationship Specialty Start Date End Date Dio Jauregui MD [address] [place] [address] PCP - General Internal Medicine 02/20/25
--- OUTSIDE RECORDS SUMMARY | 2025-09-14 19:35 | XMS_ITS | Data Portability ---
Author Organization [place] - [facility], [facility] Address [address] [place] [phone] Care Team Providers Care Industrial Retrofit Designer Name Role Phone KELLI ROMREO Primary Care Provider Assessment Encounter Date Assessment Date Assessment LastModified by Organization Details LastModified Time 03/05/2025 03/05/2025 74-year-old male presents for cerumen removal and evaluation of foreign body in the ear. Cerumen impaction removed bilaterally. Bilateral TMs are intact. No foreign body was noted in the ears bilaterally. He will follow-up in 6 months for cerumen removal, or sooner with concerns. [email or web address] Not available 03/05/2025 10:19:34 09/07/2025 09/07/2025 75-year-old male presents for cerumen removal. Cerumen impaction removed bilaterally. Bilateral TMs are intact. He will follow-up in 6 months for cerumen removal, or sooner with concerns. [email or web address] Not available 09/07/2025 09:00:56 Plan of Treatment Reminders Order Date Submit Date Provider Last Modified By Organization Details Last Modified Time Details Appointments Establish ed 15 2025 10:30A M CHAD CRUZ Not available Not available Not available Lab [...] e and sensorine ural hearing loss, bilateral 293013272 Active 2020 Mixed conductiv e and sensorine ural hearing loss, bilateral ; Note: Date Diagnosed : 03/23/2021 2:50 PM (H90.6) Not Available [facility] 4 02:58:41 Foreign body in left ear 67592538027 076891 Active 2021 Foreign body in left ear, initial encounter ; Note: Date Diagnosed : 11/09/2021 9:09 AM (T16.2XXA ) Not Available [facility] 4 02:58:43 Impacted cerumen of bilateral ears 11571177375 74849 Active 2021 Impacted cerumen, bilateral ; Note: Date Diagnosed : 11/09/2021 9:09 AM (H61.23) Not Available [facility] 4 02:58:41 Chronic rhinitis 37890278 Active 2021 Chronic rhinitis; Note: Date Diagnosed : 02/13/2022 2:46 PM (J31.0) Not Available [facility] 4 02:58:43 Foreign body in right ear 35574808793 741648 Active 2022 Foreign body in right ear, initial encounter ; Note: Date Diagnosed : 10/31/2022 9:09 AM (T16.1XXA ) Not Available [facility] 4 02:58:42 Impacted cerumen in right ear 54063422635 65426 Active 2022 Impacted cerumen, right ear; Note: Date Diagnosed : 10/31/2022 9:09 AM (H61.21) Not Available [facility] 4 02:58:42 Problem Notes None recorded. Procedures Surgical History Date Name Laterality Status Provider Name and Address Organization Details Recorded Time 5 Cerumen removal without microscope bilat completed CHAN EDOUARD PA-C [address] [place] [address],[address], [phone], [place] - [facility] 09/07/2025 09:00:28 5 Cerumen removal without microscope bilat completed CHAN EDOUARD PA-C [address] [facility],[address], [address], [place] - [facility] 03/05/2025 10:19:02 Imaging Results None recorded. Procedure Notes None recorded. Medical Equipment None Reported. Allergies No known drug allergies Medications Name Sig Start Date Stop Date Status Note LastModified by Organization Details LastModified Time atorvasta tin 40 mg tablet 09/07 completed Medicatio n ID: [id number] Br and Name: atorvasta tin Send Method: E-Prescri bed Subs Allowed: subs OK Medica tionGener icName: atorvasta tin Not Available Not Available Not Available atorvasta tin 20 mg tablet TAKE 1 TABLET (20 MG) BY MOUTH ONCE PER DAY. active Not Available Not Available No t Available tizanidin e 2 mg tablet TAKE 1 TABLET BY MOUTH EVERY 6 HOURS NEEDED FOR MUSCLE SPASM FOR UP TO 10 DAYS active Not Available Not Available No t Available cetirizin e 10 mg tablet 03/23 completed Medicatio n ID: [id number] Br and Name: cetirizin e Send Method: [...] e 12.5 mg tablet TAKE 1 TABLET (12.5 MG) BY MOUTH ONCE PER DAY. active Not Available Not Available No t Available Flonase Allergy Relief 50 mcg/actua tion nasal spray,amalia pension 2 puff once a day 2021 active Medicatio n ID: [id number] Du ration Value: 90 Brand Name: Flonase Allergy Relief Se nd Method: E-Prescri bed Subs Allowed: subs OK Medica tionGener icName: Flonase Allergy Relief Not Available Not Available Not Available Vitals Date Recorded Body height Body mass index (BMI) Body weight Heart rate Systolic And Diastolic Provider Name and Address Organization Details Last Updated DateTime 09/07/2025 175.26 cm 25.1 kg/m2 84821.7 g 51 /min 133/78 mm[Hg] Vida Holt [place] - [facility] 09/07/2025 09:00:49 Social History None recorded. Functional Status None recorded. Mental Status None recorded. Family History Nothing Reported. Medical History No medical history recorded. Past Encounters Encounter ID Performer Location Encounter Start Date Encounter Closed Date Diagnosis/Indication Diagnosis SNOMED-CT Code Diagnosis ICD10 Code Diagnosis IMO Codes Diagnosis Note [id number] CHAN EDOUARD PA-C [facility] [address] [place] [address] 03/05/2025 09:01:34 03/05/2025 09:50:40 Impacted cerumen of bilateral ears [id number] 051626 H61.23 [id number] CHAN EDOUARD PA-C [facility] [address] [place] [address] 09/07/2025 08:28:20 09/07/2025 23:11:18 Impacted cerumen of bilateral ears 1911782575 435453 H61.23 Health Concerns Section Related Observation LastModified by Organization Detai ls LastModified Time None Recorded Concern Status LastModified by Organization Details LastModified Time None Recorded Advance Directives Directive None Recorded Payers Insurance Date Sequence Insurance Name Policy Number Policy Roa Covered Member ID Roa Member ID Guarantor Name 09/04/2025 1 [facility] (MEDICARE REPLACEMENT/A DVANTAGE - HMO) [id number] Guille Shanks [id number] Guille Shanks Notes Date Note Type Note Provider Name and Address Organization Details Recorded Time 03/05/2025 text/html ROS as noted in the [facility] 74-year-old male presents for cerumen removal. He thinks that he has a hearing aid piece in his right ear. Denies otalgia, otorrhea, and changes in his hearing. SYLVIA MCINTOSH MD [address] [place] [address],[address], [phone], [place] - [facility] 03/05/2025 12:17:13 09/07/2025 text/html ROS as noted in the [facility] 75-year-old male presents for cerumen removal. No concerns today. SYLVIA MCINTOSH MD [address] [place] [address],[address], [phone], [place] - [facility] 09/07/2025 12:51:25
--- OUTSIDE RECORDS SUMMARY | 2025-09-14 19:35 | XMS_ITS | Continuity of Care Document ---
Author Organization [place] - [facility], [facility] Address [address] [place] [address] Care Team Providers Care Rn Iv Therapy Name Role Phone KELLI ROMERO Primary Care Provider Assessment Encounter Date Assessment Date Assessment LastModified by Organization Details LastModified Time 09/07/2025 09/07/2025 75-year-old male presents for cerumen removal. Cerumen impaction removed bilaterally. Bilateral TMs are intact. He will follow-up in 6 months for cerumen removal, or sooner with concerns. [email or web address] Not available 09/07/2025 09:00:56 Plan of Treatment [...] e and sensorine ural hearing loss, bilateral 714668827 Active 2020 Mixed conductiv e and sensorine ural hearing loss, bilateral ; Note: Date Diagnosed : 03/23/2021 2:50 PM (H90.6) Not Available [facility] 02:58:41 Foreign body in left ear 39012411682 191825 Active 2021 Foreign body in left ear, initial encounter ; Note: Date Diagnosed : 11/09/2021 9:09 AM (T16.2XXA ) Not Available [facility] 4 02:58:43 Impacted cerumen of bilateral ears 50796881311 46173 Active 2021 Impacted cerumen, bilateral ; Note: Date Diagnosed : 11/09/2021 9:09 AM (H61.23) Not Available [facility] 4 02:58:41 Chronic rhinitis 80086193 Active 2021 Chronic rhinitis; Note: Date Diagnosed : 02/13/2022 2:46 PM (J31.0) Not Available [facility] 4 02:58:43 Foreign body in right ear 66496342527 518022 Active 2022 Foreign body in right ear, initial encounter ; Note: Date Diagnosed : 10/31/2022 9:09 AM (T16.1XXA ) Not Available [facility] 4 02:58:42 Impacted cerumen in right ear 34728759847 19257 Active 2022 Impacted cerumen, right ear; Note: Date Diagnosed : 10/31/2022 9:09 AM (H61.21) Not Available [facility] 4 02:58:42 Problem Notes None recorded. Procedures Surgical History Date Name Laterality Status Provider Name and Address Organization Details Recorded Time 5 Cerumen removal without microscope bilat completed CHAN EDOUARD PA-C [address] [place] [address], [phone], [facility] 09/07/2025 09:00:28 5 Cerumen removal without microscope bilat completed CHAN EDOUARD PA-C [address] [place] [address], [phone], [facility] 03/05/2025 10:19:02 Imaging Results None recorded. Procedure Notes None recorded. Medical Equipment None Reported. Allergies No known drug allergies Medications Name Sig Start Date Stop Date Status Note LastModified by Organization Details LastModified Time atorvasta tin 40 mg tablet 09/07 completed Medicatio n ID: [id number] Br and Name: atorvasta tin Send Method: [...] mg tablet 03/23 completed Medicatio n ID: [id number] Br and Name: cetirizin e Send Method: [...] a day 2021 active Medicatio n ID: [id number] Du ration Value: 90 Brand Name: Flonase Allergy Relief Se nd Method: E-Prescri bed Subs Allowed: subs OK Medica tionGener icName: Flonase Allergy Relief Not Available Not Available Not Available Vitals Date Recorded Body height Body mass index (BMI) Body weight Heart rate Systolic And Diastolic Provider Name and Address Organization Details Last Updated DateTime 09/07/2025 175.26 cm 25.1 kg/m2 91388.7 g 51 /min 133/78 mm[Hg] Vida Holt [place] - [facility] 09/07/2025 09:00:49 Social History None recorded. Functional Status None recorded. Mental Status None recorded. Family History Nothing Reported. Medical History No medical history recorded. Past Encounters Encounter ID Performer Location Encounter Start Date Encounter Closed Date Diagnosis/Indication Diagnosis SNOMED-CT Code Diagnosis ICD10 Code Diagnosis IMO Codes Diagnosis Note [id number] CHAN EDOUARD PA-C [facility] [address] [place] [address] 09/07/2025 08:28:20 09/07/2025 23:11:18 Impacted cerumen of bilateral ears [id number] 509975 H61.23 Health Concerns Section Related Observation LastModified by Organization Detai ls LastModified Time None Recorded Concern Status LastModified by Organization Details LastModified Time None Recorded Payers Encounter Date Sequence Insurance Name Policy Number Policy Roa Covered Member ID Roa Member ID Guarantor Name 09/07/2025 1 [facility] (MEDICARE REPLACEMENT/A DVANTAGE - HMO) [id number] Guille Shanks [id number] Guille Shanks Notes Date Note Type Note Provider Name and Address Organization Details Recorded Time 09/07/2025 text/html ROS as noted in the HPI 75-year-old male presents for cerumen removal. No concerns today. SYLVIA MCINTOSH MD [address] [place] [address], [phone], [facility] - [facility] 09/07/2025 12:51:25
--- OUTSIDE RECORDS SUMMARY | 2025-09-14 19:35 | XMS_ITS | Encounter Summary ---
Author Organization [employer] Address [address] [place] [address] Care Team Providers Care Consumer Loan Specialist Name Role Phone Dio Jauregui MD Primary Care Provider [phone]- [phone] Reason for Visit * Reason Onset Date Comments New Patient appt 05/14/2024 Encounter Details Date Type Department Care Team ([facility] st Contact Info) Description 05/14/2024 Telephone [facility] MEDICINE [address] [place], [place] [phone] Dustin Samson MD [address] [place], [place] [phone] New Patient appt Social History Tobacco Use [...] Blood Pressure, needing referrals for Vascular, Cardiology, [facility] [employer], and pt is currently taking medications. [facility] Facility Pt used to be [facility] pt back in 2015 Spouse explains to please call and let know if we could booked if not to look somewhere else. documented in this encounter Plan of Treatment Not on file documented as of this encounter Visit Diagnoses Not on filedocumented in this encounter Care Teams Consumer Loan Specialist Relationship Specialty Start Date End Date Dio Jauregui MD [address] [place] [phone] PCP - General Internal Medicine 06/16/24 documented as of this encounter
--- OUTSIDE RECORDS SUMMARY | 2025-09-14 19:35 | XMS_ITS | Encounter Summary ---
Author Organization [employer] Address [address] [facility] 7t [place] [address] Care Team Providers Care Land Inspector Name Role Phone Dio Jauregui MD Primary Care Provider [phone] Encounter Details Date Type Department Care Team ([facility] st Contact Info) Description 07/09/2025 Orders Only [facility] CHC MED & PEDS [address] [place], [place] [phone] ProviderGm MD Social History Tobacco Use Types [...] on filedocumented in this encounter Care Teams Land Inspector Relationship Specialty Start Date End Date Dio Jauregui MD [address] [place] [phone] PCP - General Internal Medicine 06/16/24 documented as of this encounter
--- OUTSIDE RECORDS SUMMARY | 2025-09-14 19:35 | XMS_ITS | Clinical Summary ---
Author Organization [employer] Address [address] [place] [address] 7t [place] [address] Care Team Providers Care Contact Center Representative Name Role Phone Dio Jauregui MD Primary Care Provider [phone]- [phone] Allergies No known active allergies Medications Ferrous Sulfate (iron) 325 (65 Fe) MG tabletIndication s:Iron deficiency 1 tab once a day 30 tablet 11 4 Active Aspirin Low Dose 81 MG EC tabletIndication s:Primary hypertension TAKE 1 TABLET BY MOUTH EVERY DAY 90 tablet 3 5 Active tiZANidine (Zanaflex) 2 MG tabletIndication s:Leg cramps Take 1 tablet (2 mg) by mouth every 6 (six) hours if needed for muscle spasms for up to 10 days. 30 tablet 5 Active amLODIPine (Norvasc) 10 MG tabletIndication s:Primary hypertension TAKE 1 TABLET (10 MG) BY MOUTH ONCE PER DAY. 90 tablet 3 5 Active atorvastatin (Lipitor) 20 MG tabletIndication s:Primary hypertension TAKE 1 TABLET (20 MG) BY MOUTH ONCE PER DAY. 90 tablet 3 5 Active hydroCHLOROthiaz bhaskar 12.5 MG tabletIndication s:Primary hypertension TAKE 1 TABLET (12.5 MG) BY MOUTH ONCE PER DAY. 90 tablet 3 5 Active hydroCHLOROthiaz bhaskar 12.5 MG tabletIndication s:Primary hypertension Take 1 tablet (12.5 mg) by mouth Once per day. 90 tablet 3 4 025 Discontinued Active Problems Problem Noted Date Diagnosed Date Diverticulosis 07/13/2025 Internal hemorrhoids 07/13/2025 Right thyroid nodule 02/25/2025 Ectatic aorta 02/25/2025 Primary hypertension 06/16/2024 Encounters Date Type Department Care Team Description 08/29/2025 Refill [facility] [address] [facility] [place] [address] Dio Jauregui MD Primary hypertension 08/25/2025 Orders Only [facility] External Provider, [facility] 07/23/2025 Refill [facility] [address] [facility] [place] [address] Dio Jauregui MD Primary hypertension 07/13/2025 9:00 AM EDT Office Visit [facility] [address] [facility] [place] [address] Dio Jauregui MD Primary hypertension (Primary Dx); Right thyroid nodule; Ectatic aorta (CMS/HCC); Diverticulosis; Internal hemorrhoids; Normocytic anemia; Leg cramps 07/13/2025 Travel 07/10/2025 Telephone [facility] [address] [place] [address] Dio Jauregui MD Chart Prep 07/09/2025 Orders Only [facility] [address] [place] [address] ProviderGm MD 07/08/2025 Results Follow-Up [facility] [address] [place] [address] Dio Jauregui MD Lipid Panel, Standard from Last 3 Months Social History Tobacco [...] housing situation today? I have cornelius gomez 07/13/[address] you [...] 75+ series) 2025 COVID-19 Vaccine (4 - 2024-2 6 season) [...] Procedure Name Priority Date/Time Associated Diagnosis Comments US ROMAIN COMPLETE Routine 09/14/2025 3:00 PM EST US THYROID Routine 08/25/2025 4:16 PM EST LIPID PANEL, STANDARD Routine 07/08/2025 8:10 AM [...] Recently Relevant to Health Maintenance Results * US ROMAIN COMPLETE (09/14/2025 3:00 PM EST) Anatomical Region Laterality Modality Abdomen Ultrasound 09/14/2025 3:00 PM EST Narrative 09/14/2025 4:23 PM EST [place] [address] Ultrasound Report Signed Patient: Guille Shanks MR#: [id number] : 1950 Acct:[id number] Age/Sex: 75 / M ADM Date: 09/14/25 Loc: HO.US Attending Dr: Dio Jauregui MD Ordering Physician: Dio Jauregui MD Date of Service: 09/14/25 Procedure(s): US ROMAIN complete Accession Number(s): [id number] cc: Dio Jauregui MD Reason for Exam: leg cramps EXAMINATION: US ANKLE BRACHIAL INDICES (ABIS) CLINICAL INFORMATION: Leg cramps COMPARISON: None available. TECHNIQUE: Lateral ankle pressure measurements and ankle brachial indices were obtained of the bilateral lower extremity arterial system. The study was performed only at rest. FINDINGS: BILATERAL LOWER EXTREMITIES WITH ABIs: RIGHT LEG: Ankle-brachial index: 1.2 LEFT LEG: Ankle-brachial index: 0.94 ROMAIN Reference: 0.9 - 1.4 = normal - no significant arterial disease 0.7 - 0.89 = mild peripheral arterial disease 0.51 - 0.69 = moderate peripheral arterial disease 0.50 = severe peripheral arterial disease US/US ROMAIN complete IMPRESSION: Normal ankle brachial indices bilaterally. This can be artifactually elevated with vessel wall calcification/noncompressibility. Consider follow-up real-time grayscale and Doppler ultrasound of the bilateral lower extremities if clinically warranted. Electronically signed by: Teresa Tatum MD 09/14/2025 04:20 PM [facility] Dictated By: Teresa Tatum MD Signed By: <Electronically signed by Teresa Tatum MD in OV> 09/14/25 1620 DD/ 1500 TD/TT: 09/14/25 1510 Trimming Press Operator: TOÑO Procedure Note Donotuseinterpreter, Image - 09/14/2025 [place] [address] Ultrasound Report Signed Patient: Guille Shanks JMR#: [id number] : 1950Acct:[id number] Age/Sex: 75 / MADM Date: 09/14/25 Loc: .US Attending Dr: Dio Jauregui MD Ordering Physician: Dio Jauregui MD Date of Service: 09/14/25 Procedure(s): US ROMAIN complete Accession Number(s): [id number] cc: Dio Jauregui MD Reason for Exam: leg cramps EXAMINATION: US ANKLE BRACHIAL INDICES (ABIS) CLINICAL INFORMATION: Leg cramps COMPARISON: None available. TECHNIQUE: Lateral ankle pressure measurements and ankle brachial indices were obtained of the bilateral lower extremity arterial system. The study was performed only at rest. FINDINGS: BILATERAL LOWER EXTREMITIES WITH ABIs: RIGHT LEG: Ankle-brachial index: 1.2 LEFT LEG: Ankle-brachial index: 0.94 ROMAIN Reference: 0.9 - 1.4 = normal - no significant arterial disease 0.7 - 0.89 = mild peripheral arterial disease 0.51 - 0.69 = moderate peripheral arterial disease 0.50 = severe peripheral arterial disease US/US ROMAIN complete IMPRESSION: Normal ankle brachial indices bilaterally. This can be artifactually elevated with vessel wall calcification/noncompressibility. Consider follow-up real-time grayscale and Doppler ultrasound of the bilateral lower extremities if clinically warranted. Electronically signed by: Teresa Tatum MD 09/14/2025 04:20 PM EST RP Dictated By: Teresa Tatum MD Signed By: <Electronically signed by Teresa Tatum MD in OV> 09/14/25 1620 DD/ 1500 TD/TT: 09/14/25 1510 Trimming Press Operator: TOÑO us Dio Jauregui MD IMG US PROCEDURES Final Res ult * US Thyroid (08/25/2025 4:16 PM EST) Anatomical Region Laterality Modality Head, Neck Ultrasound 08/25/2025 4:16 PM EST Narrative 08/26/2025 7:28 AM EST [place] [address] Ultrasound Report Signed Patient: Guille Shanks MR#: [id number] : 1950 Acct:[id number] Age/Sex: 75 / M ADM Date: 08/25/25 Loc: HO.US Attending Dr: Selin Baugh MD Ordering Physician: Selin Baugh MD Date of Service: 08/25/25 Procedure(s): US thyroid Accession Number(s): [id number] cc: Dio Jauregui MD; Selin Baugh MD Reason for Exam: E04.1 - Nontoxic single thyroid nodule EXAMINATION: US THYROID HISTORY: E04.1 - Nontoxic single thyroid nodule TECHNIQUE: Real-time grayscale ultrasound imaging was performed and images were reviewed. COMPARISON: Comparison is made with the prior examination dated 07/15/2024. FINDINGS: SIZE: The right thyroid lobe measures 4.7 x 2.5 x 2.6 cm. The left thyroid lobe measures 4.0 x 1.4 x 1.5 cm. The isthmus measures 4 mm. FLOW: Flow to the gland is normal. ECHOGENICITY: The echotexture of the gland is homogeneous. NODULES: Again seen is a single right-sided nodule as described below: Nodule #: 1 Location: Midportion of the right thyroid lobe measuring 2.4 x 2.1 x 2.3 cm (previously 2.4 x 1.9 x 2.3 cm). Shape: Wider than tall (0 points) Margins: Smooth (0 points) Echotexture: Isoechoic (1 point) Composition: Mostly solid (2 points) Calcifications: None (0 points) Total points: 3 TIRADS: TR3: Mildly suspicious. US/US thyroid IMPRESSION: Stable mildly suspicious nodule in the midportion of the right thyroid lobe. As the prior ultrasound-guided fine-needle aspiration was nondiagnostic (10/01/2024), repeat biopsy should be considered. ACR TI-RADS Guidelines TR1 (0 points): Benign. No follow-up or biopsy required TR2 (2 points): Not Suspicious. No biopsy or follow up indicated TR3 (3 points): Mildly Suspicious. FNA if >= 2.5 cm, Follow if >= 1.5 cm TR4 (4-6 points): Moderately Suspicious. FNA if >= 1.5 cm, Follow if >= 1.0 cm TR5 (>=7 points): Highly Suspicious. FNA if >= 1.0 cm, Follow if >= 0.5 cm Electronically signed by: Ranjeet Crews MD 08/26/2025 07:25 AM EST Dictated By: Ranjeet Crews MD Signed By: <Electronically signed by Ranjeet Crews MD in OV> 08/26/25 0725 DD/ 161 TD/TT: 08/25/25 1622 Trimming Press Operator: Procedure Note Donotuseinterpreter, Image - 08/26/[address] [address] Ultrasound Report Signed Patient: Guille Shanks JMR#: [id number] : 1950Acct:[id number] Age/Sex: 75 / MADM Date: 08/25/25 Loc: HO.US Attending Dr: Selin Baugh MD Ordering Physician: Selin Baugh MD Date of Service: 08/25/25 Procedure(s): US thyroid Accession Number(s): [id number] cc: Dio Jauregui MD; Selin Baugh MD Reason for Exam: E04.1 - Nontoxic single thyroid nodule EXAMINATION: US THYROID HISTORY: E04.1 - Nontoxic single thyroid nodule TECHNIQUE: Real-time grayscale ultrasound imaging was performed and images were reviewed. COMPARISON: Comparison is made with the prior examination dated 07/15/2024. FINDINGS: SIZE: The right thyroid lobe measures 4.7 x 2.5 x 2.6 cm. The left thyroid lobe measures 4.0 x 1.4 x 1.5 cm. The isthmus measures 4 mm. FLOW: Flow to the gland is normal. ECHOGENICITY: The echotexture of the gland is homogeneous. NODULES: Again seen is a single right-sided nodule as described below: Nodule #: 1 Location: Midportion of the right thyroid lobe measuring 2.4 x 2.1 x 2.3 cm (previously 2.4 x 1.9 x 2.3 cm). Shape: Wider than tall (0 points) Margins: Smooth (0 points) Echotexture: Isoechoic (1 point) Composition: Mostly solid (2 points) Calcifications: None (0 points) Total points: 3 TIRADS: TR3: Mildly suspicious. US/US thyroid IMPRESSION: Stable mildly suspicious nodule in the midportion of the right thyroid lobe. As the prior ultrasound-guided fine-needle aspiration was nondiagnostic (10/01/2024), repeat biopsy should be considered. ACR TI-RADS Guidelines TR1 (0 points): Benign. No follow-up or biopsy required TR2 (2 points): Not Suspicious. No biopsy or follow up indicated TR3 (3 points): Mildly Suspicious. FNA if >= 2.5 cm, Follow if >= 1.5 cm TR4 (4-6 points): Moderately Suspicious. FNA if >= 1.5 cm, Follow if >= 1.0 cm TR5 (>=7 points): Highly Suspicious. FNA if >= 1.0 cm, Follow if >= 0.5 cm Electronically signed by: Ranjeet Crews MD 08/26/2025 07:25 AM EST Dictated By: Ranjeet Crews MD Signed By: <Electronically signed by Ranjeet Crews MD in OV> 08/26/25724 DD/ 15 TD/TT: 08/25/251621 Trimming Press Operator: us [facility] External Provider IMG US PROCEDURES Final Result * (ABNORMAL) CBC auto differential (07/08/2025 8:10 AM EDT) White Blood Count 8.5 4.8 - 10.8 X10*3/uL [facility] Red Blood Count 4.64 4.60 - 5.80 X10*6/uL [facility] Hemoglobin 13.2(L) 14.0 - 18.0 g/dl [facility] Hematocrit 39.6(L) 42.0 - 52.0 % [facility] Mean Corpuscular Volume 85.3 80.0 - 98.0 fL [facility] Mean Corpuscular Hemoglobin 28.4 27.0 - 33.0 pg [facility] Mean Corpuscular HGB Conc 33.3 31.0 - 36.0 g/dl [facility] Red Cell Distribution Width 13.9 11.0 - 16.0 % [facility] Platelet Count 333 160 - 400 X10*3/uL [facility] Mean Platelet Volume 10.7 9.4 - 12.4 fL [facility] Neutrophils Percent Auto 61.5 45 - 73 % [facility] Imm Gran Pct Auto 0.4 0.0 - 0.4 % [facility] Lymphocytes Percent Auto 22.6 20 - 40 % [facility] Monocytes Percent Auto 9.9 2 - 11 % [facility] Eosinophils Percent Auto 4.7(H) 0 - 4 % [facility] Basophils Percent Auto 0.9 0 - 2 % [facility] NRBC Pct Auto 0.0 0.0 - 0.2 /100WBC [facility] Neutrophils Absolute Auto 5.2 2.0 - 8.3 x10*3/uL [facility] Imm Gran Abs Auto 0.03 0.00 - 0.03 X10*3/uL [facility] Lymphocytes Absolute Auto 1.9 1.2 - 4.9 X10*3/uL [facility] Monocytes Absolute Auto 0.8 0.1 - 1.2 X10*3/uL [facility] Eosinophils Absolute Auto 0.4 0.0 - 0.4 X10*3/uL [facility] Basophils Absolute Auto 0.1 0.0 - 0.2 X10*3/uL [facility] NRBC Abs Auto 0.000 0.0 - 0.012 X10*3/uL [facility] Blood Venous blood specimen / Unknown 07/08/2025 8:10 AM EDT 07/08/2025 2:00 PM EDT us Dio Jauregui MD LAB BLOOD ORDERABLES Final Result [facility] [address] [place] [phone] * Iron And Total Iron Binding Capacity (07/08/2025 8:10 AM EDT) Iron 85 45 - 160 mcg/dL [facility] Total Iron Binding Capacity 270 228 - 428 mcg/dL [facility] Percent Iron Saturation 31 15 - 50 % [facility] Unsaturated Iron Binding 185 ug/dL [facility] Blood Venous blood specimen / Unknown 07/08/2025 8:10 AM EDT 07/08/2025 2:00 PM EDT Dio Jauregui MD LAB BLOOD ORDERABLES Final Result Performing Organization Address [facility]/ZIP Co de Phone Number [facility] [address] [place] [phone] * Reticulocyte Count (07/08/2025 8:10 AM EDT) [facility] Reticulocytes Absolute 0.040 0.026 - 0.095 X10*6/uL [facility] Immature Retic Fraction 7.7 2.3 - 13.4 % [facility] Retic HGB Equivalent 32.3 30.0 - 35.0 pg [facility] Reticulocyte Percent 0.9 0.5 - 1.8 % [facility] Blood Venous blood specimen / Unknown 07/08/2025 8:10 AM EDT 07/08/2025 2:00 PM EDT us Dio Jauregui MD LAB BLOOD ORDERABLES Final Result Performing Organization Address [facility] Co de Phone Number [facility] [address] [place] [phone] * Magnesium (07/08/2025 8:10 AM EDT) [facility] Magnesium 2.2 1.6 - 2.6 mg/dL [facility] Blood Venous blood specimen / Unknown 07/08/2025 8:10 AM EDT 07/08/2025 2:00 PM EDT Dio Jauregui MD LAB BLOOD ORDERABLES Final Result Performing Organization Address [facility] Co de Phone Number [facility] [address] [place] [phone] * Lipid Panel, Standard (07/08/2025 8:10 AM EDT) Pathologist [facility] Triglycerides 64 <150 mg/dL [facility] Comment:Desirable Triglyceri de: less than 150 mg/dLBorderline High Triglyceride 150-199 mg/dLHigh Triglyceride: 200-499 mg/dLVery High Triglyceride: greater than or equal to 5OO mg/dL Cholesterol 148 <200 mg/dL [facility] Comment:Desirable Cholestero l: less than 200 mg/dLBorderline High Cholesterol: 200-239 mg/dLHigh Cholesterol: greater than 239 mg/dL LDL Cholesterol Calculated 79 <100 mg/dL [facility] Comment:Desirable LDL: less than 100 mg/dLNear Optimal/Above Optimal LDL: 110- 129 mg/dLBorderline High LDL: 130-159 mg/dLHigh LDL: 160-189 mg/dLVery High LDL: greater than or equal to 190 mg/dL HDL Cholesterol 57 >40 mg/dL [facility] Comment:Desirable HDL: great er than 40 mg/dL Note: This HDL assay may give artificially low results in patients with liver disease. Blood Venous blood specimen / Unknown 07/08/2025 8:10 AM EDT 07/08/2025 2:00 PM EDT Dio Jauregui MD LAB BLOOD ORDERABLES Final Result [facility] [address] [place] [phone] * CT Lung Screening Low dose (06/27/2025 9:26 AM EDT) Anatomical Region Laterality Modality Lung Computed Tomogra phy Historical Provider IMG CT PROCEDURES Final R esult * Hm Colonoscopy (07/30/2023 4:21 PM EDT) Historical Provider HEALTH MAINTENANCE Final Result from Last 3 Months or Most Recently Relevant [place] [id number] [employer] [place] [id number] Care Teams Contact Center Representative Relationship Specialty Start Date End Date Dio Jauregui MD [address] [place] [address] [place] [address] PCP - General Internal Medicine 06/16/24
--- OUTSIDE RECORDS SUMMARY | 2025-09-14 19:35 | XMS_ITS | Encounter Summary ---
Author Organization [employer] Address [address] [facility] [address] [place] [address] Care Team Providers Care Mission Worker Name Role Phone Dio Jauregui MD Primary Care Provider [phone] Encounter Details Date Type Department Care Team ([facility] st Contact Info) Description 03/04/2025 Orders Only [facility]S [address] [place], [place] [phone] ProviderGm MD Social History Tobacco Use Types [...] on filedocumented in this encounter Care Teams Mission Worker Relationship Specialty Start Date End Date Dio Jauregui MD [address] [place] [phone] PCP - General Internal Medicine 06/16/24 documented as of this encounter
== END 2025-09-14 14:46 | disposition home or self-care (01) ==
LOC: HO.US 14:45
PROVIDERS: PCP Internal Medicine; Visit Provider Internal Medicine
DX: R25.2 Cramp and spasm (principal)
CPT/HCPCS: 93923

== ENCOUNTER → 2025-09-14 15:00 | Outpatient (BNV) | payer MEDICARE, SELFPAY | PROVIDERS: PCP Internal Medicine; Visit Provider Radiology Diagnostic Radiology | DX: R25.2 Cramp and spasm (principal) | CPT/HCPCS: 93923 ==

== ENCOUNTER 2025-09-30 15:14 | Outpatient (REF) | payer MEDICARE, SELFPAY ==
--- NOTE | ~2025-09-30 | US_ITS ---
EXAMINATION: BILATERAL CAROTID ULTRASOUND WITH DOPPLER HISTORY: I65.23 - Occlusion and stenosis of bilateral carotid arteries COMPARISON: Comparison is made with the prior examination dated 07/01/2024. TECHNIQUE: Real time and Color and Spectral doppler ultrasonography of the carotid and vertebral arteries was performed in multiple planes. FINDINGS: There is a large amount of plaque bilaterally. There is a 3.0 x 1.0 x 1.5 cm right level II lymph node. VERTEBRAL FLOW DIRECTION: Antegrade bilaterally. PEAK SYSTOLIC VELOCITIES (in cm/sec): RIGHT: CCA: Prox: 101 Dist: 76.8 ICA: Prox: 106 Mid: 105 Dist: 83.8 ICA/CCA Ratio: 1.0 ECA: 275 Peak ICA end diastolic velocity (EDV): 29.1 LEFT: CCA: Prox: 119 Dist: 112 ICA: Prox: 63.9 Mid: 79.8 Dist: 64 ICA/CCA Ratio: 0.50 ECA: 222 Peak ICA end diastolic velocity (EDV): 22.3 US/US carotid duplex BI IMPRESSION: 1. Findings consistent with 0-49% stenosis of the bilateral internal carotid arteries. 2. 3.0 x 1.0 x 1.5 cm right level II lymph node. Clinical correlation is recommended. Electronically signed by: Ranjeet Crews MD 09/30/2025 03:56 PM [facility]
--- OUTSIDE RECORDS SUMMARY | 2025-09-30 23:46 | XMS_ITS | Encounter Summary ---
Author Organization [employer] Address [address] [facility] 7t [place] [address] Care Team Providers Care Retail Mortgage Banker Name Role Phone Dio Jauregui MD Primary Care Provider [phone] Encounter Details Date Type Department Care Team (Late st Contact Info) Description 09/30/2025 Orders Only [facility] External Provider, [facility] Social History Tobacco Use Types Packs/Day Years Used Date Smoking Tobacco: Former Cigarettes 1 61.3 S tarted: 06/16/1964 Passive Smoke Exposure: Never Smokeless Tobacco: Never Comments:Quit smoking on 04/22 020. Smoked average [...] t he electric, gas, oil or water [employer] threatened to shut off services in your [...] Procedure Name Priority Date/Time Associated Diagnosis Comments [facility] US CAROTID ARTERY DUPLEX BILATERAL Routine 09/30/2025 3:22 PM EST documented in this encounter Results * [facility]AS US Carotid Artery Duplex Bilateral (09/30/2025 3:22 PM EST) 09/30/2025 3:22 PM EST Narrative [facility] - 09/30/2025 3:59 PM EST [facility] [place] [facility] [place] [address] Ultrasound Report Signed Patient: Guille Shanks MR#: [id number] : 1950 Acct:[id number] Age/Sex: 75 / M ADM Date: 09/30/25 Loc: HO.HMGCX Attending Dr: Anirudh Peterson MD Ordering Physician: Anirudh Peterson MD Date of Service: 09/30/25 Procedure(s): US carotid duplex BI Accession Number(s): [id number] cc: Dio Jauregui MD; Anirudh Peterson MD Reason for Exam: I65.23 - Occlusion and stenosis of bilateral carotid arteries EXAMINATION: BILATERAL CAROTID ULTRASOUND WITH DOPPLER HISTORY: I65.23 - Occlusion and stenosis of bilateral carotid arteries COMPARISON: Comparison is made with the prior examination dated 07/01/2024. TECHNIQUE: Real time and Color and Spectral doppler ultrasonography of the carotid and vertebral arteries was performed in multiple planes. FINDINGS: There is a large amount of plaque bilaterally. There is a 3.0 x 1.0 x 1.5 cm right level II lymph node. VERTEBRAL FLOW DIRECTION: Antegrade bilaterally. PEAK SYSTOLIC VELOCITIES (in cm/sec): RIGHT: CCA: Prox: 101 Dist: 76.8 ICA: Prox: 106 Mid: 105 Dist: 83.8 ICA/CCA Ratio: 1.0 ECA: 275 Peak ICA end diastolic velocity (EDV): 29.1 LEFT: CCA: Prox: 119 Dist: 112 ICA: Prox: 63.9 Mid: 79.8 Dist: 64 ICA/CCA Ratio: 0.50 ECA: 222 Peak ICA end diastolic velocity (EDV): 22.3 US/US carotid duplex BI IMPRESSION: 1. Findings consistent with 0-49% stenosis of the bilateral internal carotid arteries. 2. 3.0 x 1.0 x 1.5 cm right level II lymph node. Clinical correlation is recommended. Electronically signed by: Ranjeet Crews MD 09/30/2025 03:56 PM [facility] Dictated By: Ranjeet Crews MD Signed By: <Electronically signed by Ranjeet Crews MD in OV> 09/30/25 1556 DD/ 1522 TD/TT: 09/30/25 1551 It Programmer Analyst: Procedure Note Donotuseinterpreter, Image - 09/30/2025 [facility] [place] [facility] [place] [address] Ultrasound Report Signed Patient: Guille Shanks R#: [id number] : 1950Acct:[id number] Age/Sex: 75 / MADM Date: 09/30/25 Loc: HO.HMGCX Attending Dr: Anirduh Peterson MD Ordering Physician: Anirudh Peterson MD Date of Service: 09/30/25 Procedure(s): US carotid duplex BI Accession Number(s): [id number] cc: Dio Jauregui MD; Anirudh Peterson MD Reason for Exam: I65.23 - Occlusion and stenosis of bilateral carotidarteries EXAMINATION: BILATERAL CAROTID ULTRASOUND WITH DOPPLER HISTORY: I65.23 - Occlusion and stenosis of bilateral carotid arteries COMPARISON: Comparison is made with the prior examination dated 07/01/2024. TECHNIQUE: Real time and Color and Spectral doppler ultrasonography of the carotid and vertebral arteries was performed in multiple planes. FINDINGS: There is a large amount of plaque bilaterally. There is a 3.0 x 1.0 x 1.5 cm right level II lymph node. VERTEBRAL FLOW DIRECTION: Antegrade bilaterally. PEAK SYSTOLIC VELOCITIES (in cm/sec): RIGHT: CCA: Prox: 101 Dist: 76.8 ICA: Prox: 106 Mid: 105 Dist: 83.8 ICA/CCA Ratio: 1.0 ECA: 275 Peak ICA end diastolic velocity (EDV): 29.1 LEFT: CCA: Prox: 119 Dist: 112 ICA: Prox: 63.9 Mid: 79.8 Dist: 64 ICA/CCA Ratio: 0.50 ECA: 222 Peak ICA end diastolic velocity (EDV): 22.3 US/US carotid duplex BI IMPRESSION: 1. Findings consistent with 0-49% stenosis of the bilateral internal carotid arteries. 2. 3.0 x 1.0 x 1.5 cm right level II lymph node. Clinical correlation is recommended. Electronically signed by: Ranjeet Crews MD 09/30/2025 03:56 PM [facility] Dictated By: Ranjeet Crews MD Signed By: <Electronically signed by Ranjeet Crews MD in OV> 09/30/25 1556 DD/ 1522 TD/TT: 09/30/25 1551 It Programmer Analyst: us [facility] External Provider CV VASC ULAR PROCEDURES Final Result [facility] [address] [place] [phone] documented in this encounter Visit Diagnoses Not on filedocumented in this encounter Additional Health Concerns Assessment Noted Time PHQ-9 Depression Total Score: 0 07/13/20 10:19 AM EDT documented as of this encounter Care Teams Retail Mortgage Banker Relationship Specialty Start Date End Date Dio Jauregui MD [address] [place] [phone] PCP - General Internal Medicine 06/16/24 documented as of this encounter
--- OUTSIDE RECORDS SUMMARY | 2025-09-30 23:47 | XMS_ITS | Encounter Summary ---
Author Organization [employer] Address [address] [facility] 7t [place] [address] Care Team Providers Care Systems Designer Name Role Phone Dio Jauregui MD Primary Care Provider [phone] Encounter Details Date Type Department Care Team ([facility] st Contact Info) Description 03/04/2025 Orders Only [facility] CHC MED & PEDS [address] [place], [place] [phone] ProviderGm MD Social History Tobacco Use Types Packs/Day Years Used Date Smoking Tobacco: Former Cigarettes 1 61.3 S tarted: 06/16/1964 Comments:Quit smoking on 04/22 [...] on filedocumented in this encounter Care Teams Systems Designer Relationship Specialty Start Date End Date Dio Jauregui MD [address] [place] [phone] PCP - General Internal Medicine 06/16/24 documented as of this encounter
--- OUTSIDE RECORDS SUMMARY | 2025-09-30 23:47 | XMS_ITS | Encounter Summary ---
Author Organization [employer] Address [address] [place] [address] 7 [place] [address] Care Team Providers Care Spot Billing Clerk Name Role Phone Dio Jauregui MD Primary Care Provider [phone] Encounter Details Date Type Department Care Team ([facility] Contact Info) Description 09/15/2025 Results Follow-Up [facility] CHC MED & PEDS [address] [place], [place] [phone] Dio Jauregui MD [address] [place] [address] US ROMAIN COMPLETE Social History Tobacco Use Types Packs/Day Years [...] your housing situation today? I have cornelius sing 07/13/[address] you li [...] Time PHQ-9 Depression Total Score: 0 07/13/20 25 10:19 AM EDT documented as of this encounter Care Teams Spot Billing Clerk Relationship Specialty Start Date End Date Dio Jauregui MD [address] [place] [address] PCP - General Internal Medicine 06/16/24 documented as of this encounter
--- OUTSIDE RECORDS SUMMARY | 2025-09-30 23:47 | XMS_ITS | Clinical Summary ---
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 -Candler bruits on exam so obtained a carotid [...] at bedtime and baby aspirin Ectatic aorta 06/15/2021 Overview (02/20/2025): -See CT under cor [...] right eye 03/01/2021 Overview (09/17/2024): Since childhood Surgical History Surgery Date Site/Laterality Comments TURP [...] related to the patient) early of an [place] No Known Problems Father doesn't kn ow [...] on file Sexual Orientation Not on file Last Filed Vital Signs Vital Sign Reading [...] 1-dose 75+ series) 2025 COVID-19 Vaccine ( season) 2025 01/06/2023, 02/09/2021, 01/18/2021 Influenza Vaccine [...] Signed Date: 07/07/2025 18:02 ET Workstation ID: [id number] Transcribed By: Self Edit Transcribed Date: 07/07/2025 [...] Signed Date: 07/07/2025 18:02 ET Workstation ID: [id number] Transcribed By: Self Edit Transcribed Date: 07/07/2025 17:54 ET Nury Singleton MD [facility] CT PROCEDURES Final Result * Annual BMP Blood Test (09/20/2023) Pathologist [facility] Annual BMP Blood Test Abstracted Historical Provider HEALTH MAINTENANCE Final Result * Lipid panel (08/15/2022) Pathologist [facility] LDL/HDL Ratio 2 0 - 4 Triglycerides 50 0 - 150 mg/dL Cholesterol 144 0 - 200 mg/dL HDL 69 >=40 mg/dL LDL Cholesterol 65 0 - 100 mg/dL Blood Venous blood specimen / Unknown us Historical Provider LAB BLOOD ORDERABLES Smiley l Result from Last 3 Months or Most Recently Relevant to Health Maintenance Insurance [place] Member Subscriber Plan / Payer (Ef fective 2025-Present) Name:DIMITRISJOVANNI CARTEREN Relation to Subscriber:Self Name:Dimitris Guille Payer ID:[id number] Group ID:Not on file Type:Not on file Address: [facility] [employer] ATTN:[employer] [address] [place] [id number] [employer] MEDICARE Care Teams Blanching Machine Operator Relationship Specialty Start Date End Date Dio Jauregui MD [address] [place] [phone] PCP - General Internal Medicine 02/20/25
--- OUTSIDE RECORDS SUMMARY | 2025-09-30 23:47 | XMS_ITS | Encounter Summary ---
Author Organization [employer] Address [address] [facility] 7t [place] [address] Care Team Providers Care Log Raft Worker Name Role Phone Dio Jauregui MD Primary Care Provider [phone] Encounter Details Date Type Department Care Team ([facility] st Contact Info) Description 02/20/2025 Orders Only [facility] CHC MED & PEDS [address] [place], [place] [phone] ProviderGm MD Social History Tobacco Use Types [...] on filedocumented in this encounter Care Teams Log Raft Worker Relationship Specialty Start Date End Date Dio Jauregui MD [address] [place] [address] PCP - General Internal Medicine 06/16/24 documented as of this encounter
--- OUTSIDE RECORDS SUMMARY | 2025-09-30 23:47 | XMS_ITS | Clinical Summary ---
Author Organization [employer] Address [address] [place] [address] 7t [place] [address] Care Team Providers Care Steam Distribution Supervisor Name Role Phone Dio Jauregui MD Primary Care Provider [phone] Allergies No known active allergies Medications Ferrous [...] PER DAY. 90 tablet 3 07/24/2025 Active hydroCHLOROthiazi de 12.5 MG tabletIndications :Primary hypertension TAKE 1 TABLET (12.5 MG) BY MOUTH ONCE PER DAY. 90 tablet 3 08/31/2025 Active Active Problems Problem Noted Date Diagnosed Date Diverticulosis 07/13/2025 Internal hemorrhoids 07/13/2025 Right thyroid nodule 02/25/2025 Ectatic aorta 02/25/2025 Primary hypertension 06/16/2024 Encounters Date Type Department Care Team Description 09/30/2025 Orders Only [facility] External Provider, [facility] 09/15/2025 Results Follow-Up [facility] MED & PEDS [address] [place] [address] Dio Jauregui MD US ROMAIN COMPLETE 08/29/2025 Refill [facility] MED & PEDS [address] [place] [address] Dio Jauregui MD Primary hypertension 08/25/2025 Orders Only [facility] External Provider, [facility] 07/23/2025 Refill [facility] MED & PEDS [address] [place] [address] Dio Jauregui MD Primary hypertension 07/13/2025 9:00 AM EDT Office Visit [facility] MED & PEDS [address] [place] [address] Dio Jauregui MD Primary hypertension (Primary Dx); Right thyroid nodule; Ectatic aorta (CMS/HCC); Diverticulosis; Internal hemorrhoids; Normocytic anemia; Leg cramps 07/13/2025 Travel 07/10/2025 Telephone [facility] MED & PEDS [address] [place] [address] Dio Jauregui MD Chart Prep 07/09/2025 Orders Only [facility] MED & PEDS [address] [place] [address] ProviderGm MD 07/08/2025 Results Follow-Up [facility] MED & PEDS [address] [place] [address] Dio Jauregui MD Lipid Panel, Standard from [...] Procedure Name Priority Date/Time Associated Diagnosis Comments VASC US CAROTID ARTERY DUPLEX BILATERAL Routine 09/30/2025 3:22 PM EST US ROMAIN COMPLETE Routine 09/14/2025 3:00 PM [...] Routine 07/08/2025 8:10 AM EDT Microcytic anemia HM COLONOSCOPY Routine 07/30/2023 4:21 PM EDT from Last 3 Months or Most Recently Relevant to Health Maintenance Results * VASC US Carotid Artery Duplex Bilateral (09/30/2025 3:22 PM EST) 09/30/2025 3:22 PM EST Narrative [facility] IMAG[facility] - 09/30/2025 3:59 PM EST [facility] Adult Primary Care [facility] [place] [address] Ultrasound Report Signed Patient: Guille Shanks MR#: [id number] : 1950 Acct:[id number] Age/Sex: 75 / M ADM Date: 09/30/25 Loc: HO.HMGCX Attending Dr: Anirudh Peterson MD Ordering Physician: Anirudh Peterson MD Date of Service: 09/30/25 Procedure(s): US carotid duplex BI Accession Number(s): [id number] cc: Dio Jauregui MD; Anirudh Peterson MD [...] by: Ranjeet Crews MD 09/30/2025 03:56 PM [facility] Dictated By: Ranjeet Crews MD Signed By: <Electronically signed by Ranjeet Crews MD in OV> 09/30/25 1556 DD/ 1522 TD/TT: 09/30/25 1551 Chemical Lab Technician: Procedure Note Donotuseinterpreter, Image - 09/30/2025 [facility] Adult Primary Care [address] [place] [address] [place] [address] Ultrasound Report Signed Patient: Guille Shanks R#: [id number] : 1950Acct:[id number] Age/Sex: 75 / MADM Date: 09/30/25 [facility]: Anirudh Peterson MD Ordering Physician: Anirudh Peterson MD Date of Service: 09/30/25 Procedure(s): US carotid duplex BI Accession Number(s): [id number] cc: Dio Jauregui MD; Anirudh Peterson MD [...] by: Ranjeet Crews MD 09/30/2025 03:56 PM [facility] Dictated By: Ranjeet Crews MD Signed By: <Electronically signed by Ranjeet Crews MD in OV> 09/30/25 1556 DD/ 1522 TD/TT: 09/30/25 1551 Chemical Lab Technician: us [facility] External Provider CV VASC ULAR PROCEDURES Final Result [facility] [address] [place] [phone] * US ROMAIN COMPLETE (09/14/2025 3:00 PM EST) Anatomical Region Laterality Modality Abdomen Ultrasound 09/14/2025 3:00 PM EST Narrative 09/14/2025 4:23 PM EST [address] [address] Ultrasound Report Signed Patient: Guille Shanks MR#: [id number] : 1950 Acct:[id number] Age/Sex: 75 / M ADM Date: 09/14/25 Loc: HO.US Attending Dr: Dio Jauregui MD Ordering Physician: Dio Jauregui MD Date of Service: 09/14/25 Procedure(s): US ROMAIN complete Accession Number(s): [id number] cc: Dio Jauregui MD Reason for Exam: [...] Teresa Tatum MD 09/14/2025 04:20 PM EST Dictated By: Teresa Tatum MD Signed By: <Electronically signed by Teresa Tatum MD in OV> 09/14/25 1620 DD/ 1500 TD/TT: 09/14/25 1510 Chemical Lab Technician: TOÑO Procedure Note Donotuseinterpreter, Image - 09/14/[address] [address] Ultrasound Report Signed Patient: Guille Shanks JMR#: [id number] : 1950Acct:[id number] Age/Sex: 75 / MADM Date: 09/14/25 Loc: HO.US Attending Dr: Dio Jauregui MD Ordering Physician: Dio Jauregui MD Date of Service: 09/14/25 Procedure(s): US ROMAIN complete Accession Number(s): [id number] cc: Dio Jauregui MD Reason for Exam: [...] Teresa Tatum MD 09/14/2025 04:20 PM EST Dictated By: Teresa Tatum MD Signed By: <Electronically signed by Teresa Tatum MD in OV> 09/14/25 1620 DD/ 1500 TD/TT: 09/14/25 1510 Chemical Lab Technician: TOÑO us Dio Jauregui MD IMG US PROCEDURES Final Res ult * US Thyroid (08/25/2025 4:16 PM EST) Anatomical Region Laterality Modality Head, Neck Ultrasound 08/25/2025 4:16 PM EST Narrative 08/26/2025 7:28 AM EST [address] [address] Ultrasound Report Signed Patient: Guille Shanks MR#: [id number] : 1950 Acct:[id number] Age/Sex: 75 / M ADM Date: 08/25/25 Loc: HO.US Attending Dr: Selin Baugh MD Ordering Physician: Selin Baugh MD Date of Service: 08/25/25 Procedure(s): US thyroid Accession Number(s): [id number] cc: Dio Jauregui MD; Selin Baugh MD [...] Crews MD in OV> 08/26/25 0725 DD/ 1616 TD/TT: 08/25/25 1622 Chemical Lab Technician: Procedure Note Donotuseinterpreter, Image - 08/26/2025 [place] [address] Ultrasound Report Signed Patient: Guille Shanks JMR#: [id number] : 1950Acct:[id number] Age/Sex: 75 / MADM Date: 08/25/25 Loc: HO.US Attending Dr: Selin Baugh MD Ordering Physician: Selin Baugh MD Date of Service: 08/25/25 Procedure(s): US thyroid Accession Number(s): [id number] cc: Dio Jauregui MD; Selin Baugh MD [...] Crews MD in OV> 08/26/25 0725 DD/ 1616 TD/TT: 08/25/25 1622 Chemical Lab Technician: us [facility] External Provider IMG US PROCEDURES Final Result * (ABNORMAL) CBC auto differential (07/08/2025 8:10 AM EDT) White Blood Count 8.5 4.8 - 10.8 X10*3/uL [facility] Red Blood Count 4.64 4.60 - 5.80 X10*6/uL [facility] Hemoglobin 13.2(L) 14.0 - 18.0 g/dl [facility] Hematocrit 39.6(L) 42.0 - 52.0 % [facility] Mean Corpuscular Volume 85.3 80.0 - 98.0 fL [facility] Mean Corpuscular Hemoglobin 28.4 27.0 - 33.0 pg [facility] Mean Corpuscular HGB Conc 33.3 31.0 - 36.0 g/dl [facility] Red Cell Distribution Width 13.9 11.0 - 16.0 % [facility] Platelet Count 333 160 - 400 X10*3/uL [facility] Mean Platelet Volume 10.7 9.4 - 12.4 fL [facility] Neutrophils Percent Auto 61.5 45 - 73 % [facility] Imm Gran Pct Auto 0.4 0.0 - 0.4 % [facility] Lymphocytes Percent Auto 22.6 20 - 40 % [facility] Monocytes Percent Auto 9.9 2 - 11 % [facility] Eosinophils Percent Auto 4.7(H) 0 - 4 % [facility] Basophils Percent Auto 0.9 0 - 2 % [facility] NRBC Pct Auto 0.0 0.0 - 0.2 /100WBC [facility] Neutrophils Absolute Auto 5.2 2.0 - 8.3 x10*3/uL [facility] Imm Gran Abs Auto 0.03 0.00 - 0.03 X10*3/uL [facility] Lymphocytes Absolute Auto 1.9 1.2 - 4.9 X10*3/uL [facility] Monocytes Absolute Auto 0.8 0.1 - 1.2 X10*3/uL [facility] Eosinophils Absolute Auto 0.4 0.0 - 0.4 X10*3/uL [facility] Basophils Absolute Auto 0.1 0.0 - 0.2 X10*3/uL [facility] NRBC Abs Auto 0.000 0.0 - 0.012 X10*3/uL [facility] Blood Venous blood specimen / Unknown 07/08/2025 8:10 AM EDT 07/08/2025 2:00 PM EDT us Dio Jauregui MD LAB BLOOD ORDERABLES Final Result Performing Organization Address [facility]/ZIP Co de Phone Number [facility] [address] [place] [phone] * Iron And Total Iron Binding Capacity (07/08/2025 8:10 AM EDT) Iron 85 45 - 160 mcg/dL [facility] Total Iron Binding Capacity 270 228 - 428 mcg/dL [facility] Percent Iron Saturation 31 15 - 50 % [facility] Unsaturated Iron Binding 185 ug/dL [facility] Blood Venous blood specimen / Unknown 07/08/2025 8:10 AM EDT 07/08/2025 2:00 PM EDT us Dio Jauregui MD LAB BLOOD ORDERABLES Final Result Performing Organization Address [facility] Co de Phone Number [facility] [address] [place] [phone] * Reticulocyte Count (07/08/2025 8:10 AM EDT) Reticulocytes Absolute 0.040 0.026 - 0.095 X10*6/uL [facility] Immature Retic Fraction 7.7 2.3 - 13.4 % [facility] Retic HGB Equivalent 32.3 30.0 - 35.0 pg [facility] Reticulocyte Percent 0.9 0.5 - 1.8 % [facility] Blood Venous blood specimen / Unknown 07/08/2025 8:10 AM EDT 07/08/2025 2:00 PM EDT us Dio Jauregui MD LAB BLOOD ORDERABLES Final Result Performing Organization Address [facility] Co de Phone Number [facility] [address] [place] [phone] * Magnesium (07/08/2025 8:10 AM EDT) Magnesium 2.2 1.6 - 2.6 mg/dL [facility] Blood Venous blood specimen / Unknown 07/08/2025 8:10 AM EDT 07/08/2025 2:00 PM EDT us Dio Jauregui MD LAB BLOOD ORDERABLES Final Result Performing Organization Address [facility] Co ms Phone Number [facility] [address] [place] [phone] * Lipid Panel, Standard (07/08/2025 8:10 AM EDT) Triglycerides 64 <150 mg/dL [facility] Comment:Desirable Triglyceri de: less than 150 mg/dLBorderline High Triglyceride 150-199 mg/dLHigh Triglyceride: 200-499 mg/dLVery High Triglyceride: greater than or equal to 5OO mg/dL Cholesterol 148 <200 mg/dL [facility] Comment:Desirable Cholestero l: less than 200 mg/dLBorderline High Cholesterol: 200-239 mg/dLHigh Cholesterol: greater than 239 mg/dL LDL Cholesterol Calculated 79 <100 mg/dL [facility] Comment:Desirable LDL: less than 100 mg/dLNear Optimal/Above Optimal LDL: 110- 129 mg/dLBorderline High LDL: 130-159 mg/dLHigh LDL: 160-189 mg/dLVery High LDL: greater than or equal to 190 mg/dL HDL Cholesterol 57 >40 mg/dL [facility] Comment:Desirable HDL: great er than 40 mg/dL Note: This HDL assay may give artificially low results in patients with liver disease. Blood Venous blood specimen / Unknown 07/08/2025 8:10 AM EDT 07/08/2025 2:00 PM EDT Dio Jauregui MD LAB BLOOD ORDERABLES Final Result [facility] [address] [place] [phone] [phone] * Colonoscopy (07/30/2023 4:21 PM EDT) Historical Provider HEALTH MAINTENANCE Final Result from Last 3 Months or Most Recently Relevant to Health Maintenance Insurance [employer] MEDICARE ADVANTAGE HMO Care Teams Steam Distribution Supervisor Relationship Specialty Start Date End Date Dio Jauregui MD [address] [place] [phone] PCP - General Internal Medicine 06/16/24
--- OUTSIDE RECORDS SUMMARY | 2025-09-30 23:47 | XMS_ITS | Data Portability ---
Author Organization [place] - [facility], Allergy Address [address] [place] [id number] Care Team Providers Care Dental Detail Representative Name Role Phone KELLI ROMERO Primary Care [...] for cerumen removal, or sooner with concerns. [email or web address] Not available 03/05/2025 10:19:34 09/07/2025 09/07/2025 75-year-old male presents for cerumen removal. Cerumen impaction removed bilaterally. Bilateral TMs are intact. He will follow-up in 6 months for cerumen removal, or sooner with concerns. [email or web address] Not available 09/07/2025 09:00:56 Plan of Treatment [...] e and sensorine ural hearing loss, bilateral [id number] Active 2020 Mixed conductiv e and sensorine ural hearing loss, bilateral ; Note: Date Diagnosed : 03/23/2021 2:50 PM (H90.6) Not Available [facility] 4 02:58:41 Foreign body in left ear [id number] 874331 Active 2021 Foreign body in left ear, initial encounter ; Note: Date Diagnosed : 11/09/2021 9:09 AM (T16.2XXA ) Not Available [facility] 4 02:58:43 Impacted cerumen of bilateral ears 88746612190 22182 Active 2021 Impacted cerumen, bilateral ; Note: Date Diagnosed : 11/09/2021 9:09 AM (H61.23) Not Available [facility] 4 02:58:41 Chronic rhinitis 36949840 Active 2021 Chronic rhinitis; Note: Date Diagnosed : 02/13/2022 2:46 PM (J31.0) Not Available [facility] 4 02:58:43 Foreign body in right ear [id number] 568308 Active 2022 Foreign body in right ear, initial encounter ; Note: Date Diagnosed : 10/31/2022 9:09 AM (T16.1XXA ) Not Available [facility] 4 02:58:42 Impacted cerumen in right ear 98452579735 22987 Active 2022 Impacted cerumen, right ear; Note: Date Diagnosed : 10/31/2022 9:09 AM (H61.21) Not Available [facility] 4 02:58:42 Problem Notes None recorded. Procedures Surgical History Date Name Laterality Status Provider Name and Address Organization Details Recorded Time 5 Cerumen removal without microscope bilat completed CHAN EDOUARD PA-C [address] [place] [address],[address], [address], [place] - [facility] 09/07/2025 09:00:28 5 Cerumen removal without microscope bilat completed CHAN EDOUARD PA-C [address] [facility],[address], [address], [place] - [facility] 03/05/2025 10:19:02 Imaging Results None recorded. Procedure Notes None recorded. Medical Equipment None Reported. Allergies No known drug allergies Medications Name Sig Start Date Stop Date Status Note LastModified by Organization Details LastModified Time atorvasta tin 40 mg tablet 09/07 completed Medicatio n ID: [id number] Br and Name: atorvasta tin Send Method: [...] mg tablet 03/23 completed Medicatio n ID: [id number] Br and Name: cetirizin e Send Method: [...] a day 2021 active Medicatio n ID: [id number] Du ration Value: 90 Brand Name: Flonase Allergy Relief Se nd Method: E-Prescri bed Subs Allowed: subs [place] Medica tionGener icName: Flonase Allergy Relief Not Available Not Available Not Available Vitals Date Recorded Body height Body mass index (BMI) Body weight Heart rate Systolic And Diastolic Provider Name and Address Organization Details Last Updated DateTime 09/07/2025 175.26 cm 25.1 kg/m2 30080.7 g 51 /min 133/78 mm[Hg] Vida Holt [place] - [facility] 09/07/2025 09:00:49 Social History None recorded. Functional Status None recorded. Mental Status None recorded. Family History Nothing Reported. Medical History No medical history recorded. Past Encounters Encounter ID Performer Location Encounter Start Date Encounter Closed Date Diagnosis/Indication Diagnosis SNOMED-CT Code Diagnosis ICD10 Code Diagnosis IMO Codes Diagnosis Note [id number] CHAN EDOUARD PA-C [facility] [address] [place] [address] 03/05/2025 09:01:34 03/05/2025 09:50:40 Impacted cerumen of bilateral ears [id number] 069791 H61.23 [id number] CHAN EDOUARD PA-C [facility] [address] [place] [address] 09/07/2025 08:28:20 09/07/2025 23:11:18 Impacted cerumen of bilateral ears [id number] 842223 H61.23 Health Concerns Section Related Observation LastModified by Organization Detai ls LastModified Time None Recorded Concern Status LastModified by Organization Details LastModified Time None Recorded Advance Directives Directive None Recorded Payers Insurance Date Sequence Insurance Name Policy Number Policy Roa Covered Member ID Roa Member ID Guarantor Name 09/04/2025 1 [facility] (MEDICARE REPLACEMENT/A DVANTAGE - HMO) [id number] Guille Shanks [id number] Guille Shanks Notes Date Note Type Note Provider Name and Address Organization Details Recorded Time 03/05/2025 text/html ROS as noted in the [facility] 74-year-old male presents for cerumen removal. He thinks that he has a hearing aid piece in his right ear. Denies otalgia, otorrhea, and changes in his hearing. SYLVIA MCINTOSH MD [address] [place] [address],[address], [address], [place] - [facility] 03/05/2025 12:17:13 09/07/2025 text/html ROS as noted in the [facility] 75-year-old male presents for cerumen removal. No concerns today. SYLVIA MCINTOSH MD [address] [place] [address],[address], [phone], [place] - [facility] 09/07/2025 12:51:25
--- OUTSIDE RECORDS SUMMARY | 2025-09-30 23:47 | XMS_ITS | Encounter Summary ---
Author Organization [employer] Address [address] [place] [address] Care Team Providers Care Hvac Refrigeration Technician Name Role Phone Dio Jauregui MD Primary Care Provider [phone] Reason for Visit * Reason Onset Date Comments New Patient appt 05/14/2024 Encounter Details Date Type Department Care Team ([facility] st Contact Info) Description 05/14/2024 Telephone [facility] [address] [place], [place] [phone] Dustin Samson MD [address] [place], [place] [phone] New Patient appt Social History Tobacco Use [...] wend available. * Telephone Encounter - Jaymeerrol Venron Aldrich - 05/14/2024 9:31 AM EDT Tc from pt Spouse requesting a New Patient appt urgently. Spouse explains Medical issues of Thyroid, High Blood Pressure, needing referrals for Vascular, Cardiology, Optical Goods Drill Operator, and pt is currently taking medications. [facility] Facility Pt used to be [facility] pt back in 2015 Spouse explains to please call and let know if we could booked if not to look somewhere else. documented in this encounter Plan of Treatment Not on file documented as of this encounter Visit Diagnoses Not on filedocumented in this encounter Care Teams Hvac Refrigeration Technician Relationship Specialty Start Date End Date Dio Jauregui MD [address] [place] [id number] PCP - General Internal Medicine 06/16/24 documented as of this encounter
--- OUTSIDE RECORDS SUMMARY | 2025-09-30 23:47 | XMS_ITS | Continuity of Care Document ---
Author Organization [place] - [facility], [facility] Address [address] [place] [address] Care Team Providers Care Car Changer Name Role Phone KELLI ROMERO Primary Care Provider Assessment Encounter Date Assessment Date Assessment LastModified by Organization Details LastModified Time 09/07/2025 09/07/2025 75-year-old male presents for cerumen removal. Cerumen impaction removed bilaterally. Bilateral TMs are intact. He will follow-up in 6 months for cerumen removal, or sooner with concerns. [email or web address] Not available 09/07/2025 09:00:56 Plan of Treatment [...] e and sensorine ural hearing loss, bilateral 665061132 Active 2020 Mixed conductiv e and sensorine ural hearing loss, bilateral ; Note: Date Diagnosed : 03/23/2021 2:50 PM (H90.6) Not Available [facility] 02:58:41 Foreign body in left ear [id number] 530960 Active 2021 Foreign body in left ear, initial encounter ; Note: Date Diagnosed : 11/09/2021 9:09 AM (T16.2XXA ) Not Available [facility] 4 02:58:43 Impacted cerumen of bilateral ears 08977756072 67451 Active 2021 Impacted cerumen, bilateral ; Note: Date Diagnosed : 11/09/2021 9:09 AM (H61.23) Not Available [facility] 4 02:58:41 Chronic rhinitis 02916734 Active 2021 Chronic rhinitis; Note: Date Diagnosed : 02/13/2022 2:46 PM (J31.0) Not Available [facility] 4 02:58:43 Foreign body in right ear 97954072004 165436 Active 2022 Foreign body in right ear, initial encounter ; Note: Date Diagnosed : 10/31/2022 9:09 AM (T16.1XXA ) Not Available [facility] 4 02:58:42 Impacted cerumen in right ear 75063342811 38708 Active 2022 Impacted cerumen, right ear; Note: Date Diagnosed : 10/31/2022 9:09 AM (H61.21) Not Available [facility] 4 02:58:42 Problem Notes None recorded. Procedures Surgical History Date Name Laterality Status Provider Name and Address Organization Details Recorded Time 5 Cerumen removal without microscope bilat completed CHAN EDOUARD PA-C [address] [place] [address], [phone], [facility] 09/07/2025 09:00:28 5 Cerumen removal without microscope bilat completed CHAN EDOUARD PA-C [address] [place] [address], [phone], [facility] 03/05/2025 10:19:02 Imaging Results None recorded. Procedure Notes None recorded. Medical Equipment None Reported. Allergies No known drug allergies Medications Name Sig Start Date Stop Date Status Note LastModified by Organization Details LastModified Time atorvasta tin 40 mg tablet 09/07 completed Medicatio n ID: [id number] Br and Name: atorvasta tin Send Method: [...] mg tablet 03/23 completed Medicatio n ID: [id number] Br and Name: cetirizin e Send Method: [...] a day 2021 active Medicatio n ID: [id number] Du ration Value: 90 Brand Name: Flonase Allergy Relief Se nd Method: E-Prescri bed Subs Allowed: subs [place] Medica tionGener icName: Flonase Allergy Relief Not Available Not Available Not Available Vitals Date Recorded Body height Body mass index (BMI) Body weight Heart rate Systolic And Diastolic Provider Name and Address Organization Details Last Updated DateTime 09/07/2025 175.26 cm 25.1 kg/m2 42539.7 g 51 /min 133/78 mm[Hg] Vida Holt [place] - [facility] 09/07/2025 09:00:49 Social History None recorded. Functional Status None recorded. Mental Status None recorded. Family History Nothing Reported. Medical History No medical history recorded. Past Encounters Encounter ID Performer Location Encounter Start Date Encounter Closed Date Diagnosis/Indication Diagnosis SNOMED-CT Code Diagnosis ICD10 Code Diagnosis IMO Codes Diagnosis Note [id number] CHAN EDOUARD PA-C [facility] [address] [place] [address] 09/07/2025 08:28:20 09/07/2025 23:11:18 Impacted cerumen of bilateral ears [id number] 779156 H61.23 Health Concerns Section Related Observation LastModified by Organization Detai ls LastModified Time None Recorded Concern Status LastModified by Organization Details LastModified Time None Recorded Payers Encounter Date Sequence Insurance Name Policy Number Policy Roa Covered Member ID Roa Member ID Guarantor Name 09/07/2025 1 [facility] (MEDICARE REPLACEMENT/A DVANTAGE - HMO) [id number] Guille Shanks [id number] Guille Shanks Notes Date Note Type Note Provider Name and Address Organization Details Recorded Time 09/07/2025 text/html ROS as noted in the HPI 75-year-old male presents for cerumen removal. No concerns today. SYLVIA MCINTOSH MD [address] [place] [address], [phone], [facility] - [facility] 09/07/2025 12:51:25
--- OUTSIDE RECORDS SUMMARY | 2025-09-30 23:47 | XMS_ITS | Encounter Summary ---
Author Organization [employer] Address [address] [facility] [address] [place] [address] Care Team Providers Care District Administrator Name Role Phone Dio Jauregui MD Primary Care Provider [phone] Encounter Details Date Type Department Care Team ([facility] st Contact Info) Description 07/09/2025 Orders Only [facility] [address] [place], [place] [phone] ProviderGm MD Social History Tobacco Use Types [...] on filedocumented in this encounter Care Teams District Administrator Relationship Specialty Start Date End Date Dio Jauregui MD [address] [place] [id number] PCP - General Internal Medicine 06/16/24 documented as of this encounter
== END 2025-09-30 15:15 | disposition home or self-care (01) ==
LOC: HO.HMGCX 15:14
PROVIDERS: PCP Internal Medicine; Visit Provider Surgery Vascular Surgery
DX: I65.23 Occlusion and stenosis of bilateral carotid arteries (principal)
CPT/HCPCS: 93880

== ENCOUNTER → 2025-09-30 15:18 | Outpatient (BNV) | payer MEDICARE, SELFPAY | PROVIDERS: PCP Internal Medicine; Visit Provider Radiology Diagnostic Radiology | DX: I65.23 Occlusion and stenosis of bilateral carotid arteries (principal) | CPT/HCPCS: 93880 ==